=== PATIENT | male | born 1970 | race Caucasian/White ===

== ENCOUNTER 2024-01-28 16:00 | Emergency (ER) | payer BC ==
--- OUTSIDE RECORDS SUMMARY | 2024-01-28 16:04 | XMS REPORT | Continuity of Care Document ---
Author Name Unknown Address [address] [facility] [address] [place] [address] [facility] Address [address] [facility] [address] [place] [address] Care Team Providers Care Blanker Press Operator Name Role Phone Nelsy Self Primary Care Physician [phone] Javier Mansfield Attending Clinician Unavailable Physician, No Primary or Family Admitting Clinic elizabeth Unavailable Payers Payer Name Policy Type Policy Number Effective Date Expirati on Date Source Allergies, Adverse Reactions, Alerts Allergy Name Allergy Type Status Severity Reaction(s) Onset Date Inactive Date Treating Clinician Comments Source [place] - Intraven ous [facility] to adverse reaction to drug Active 05-06 00:00: 00 Medications Ordered Medication Name Filled Medication Name Start Date Stop Date Current Medication? Ordering Clinician Indication Dosage Frequency Signature (SIG) Comments Components Source Dose Unknown 05-06 00:00: 00 No Dose Unknown 05-06 00:00: 00 No metformin 850 mg tablet 05-06 00:00: 00 No 1mg lovastatin 10 mg tablet - 00:00: 00 No 1mg Dose Unknown - 00:00: 00 No Dose Unknown - 00:00: 00 No metformin 850 mg tablet 05-06 00:00: 00 No 1mg lovastatin 10 mg tablet - 00:00: 00 No 1mg glipizide 10 mg tablet 3-09 00:00: 00 No 1mg lisinopril 2.5 mg tablet 3 00:00: 00 No 1mg metformin 850 mg tablet 01-07 00:00: 00 No 1mg lovastatin 10 mg tablet 01-07 00:00: 00 No 1mg glipizide 10 mg tablet 3 00:00: 00 No 1mg lisinopril 2.5 mg tablet 01-07 00:00: 00 No 1mg metformin 850 mg tablet 01-07 00:00: 00 No 1mg lovastatin 10 mg tablet 01-07 00:00: 00 No 1mg Dose Unknown 2020-11 00:00: 00 No Dose Unknown 2020-11 00:00: 00 No metformin 850 mg tablet 2020-11 00:00: 00 No 1mg lovastatin 10 mg tablet 2020-11 00:00: 00 No 1mg Dose Unknown 2020-11 00:00: 00 No Dose Unknown 2020-11 00:00: 00 No metformin 850 mg tablet 2020-11 00:00: 00 No 1mg lovastatin 10 mg tablet 2020-11 00:00: 00 No 1mg Dose Unknown 07-08 00:00: 00 No lisinopril 2.5 mg tablet 07-08 00:00: 00 No 1mg metformin 850 mg tablet 07-08 00:00: 00 No 1mg lovastatin 10 mg tablet 07-08 00:00: 00 No 1mg Dose Unknown 07-08 00:00: 00 No lisinopril 2.5 mg tablet 07-08 00:00: 00 No 1mg metformin 850 mg tablet 07-08 00:00: 00 No 1mg lovastatin 10 mg tablet 07-08 00:00: 00 No 1mg glipizide 10 mg tablet 07-05 00:00: 00 No 1mg lisinopril 2.5 mg tablet 07-05 00:00: 00 No 1mg metformin 850 mg tablet 00:00: 00 No 1mg lovastatin 10 mg tablet 0 - 00:00: 00 No 1mg glipizide 10 mg tablet 0 - 00:00: 00 No 1mg lisinopril 2.5 mg tablet 0 07-05 00:00: 00 No 1mg metformin 850 mg tablet 0 07-05 00:00: 00 No 1mg lovastatin 10 mg tablet 0 07-05 00:00: 00 No 1mg Dose Unknown 0 03-17 00:00: 00 No Dose Unknown 0 03-17 00:00: 00 No Dose Unknown 0 03-17 00:00: 00 No Dose Unknown 0 03-17 00:00: 00 No Dose Unknown 0 03-17 00:00: 00 No Dose Unknown 0 03-17 00:00: 00 No Dose Unknown 0 03-17 00:00: 00 No Dose Unknown 0 03-17 00:00: 00 No lisinopril 2.5 mg tablet 0 01-20 00:00: 00 No 1mg Dose Unknown 0 01-20 00:00: 00 No metformin 850 mg tablet 0 01-20 00:00: 00 No 1mg lovastatin 10 mg tablet 0 01-20 00:00: 00 No 1mg lisinopril 2.5 mg tablet 0 3- 00:00: 00 No 1mg Dose Unknown 0 01-20 00:00: 00 No metformin 850 mg tablet 0 - 00:00: 00 No 1mg lovastatin 10 mg tablet 0 01-20 00:00: 00 No 1mg lisinopril 2.5 mg tablet 0 3-19 00:00: 00 No 1mg glipizide 5 mg tablet 0 3-19 00:00: 00 No 1mg metformin 850 mg tablet 0 3-19 00:00: 00 No 1mg lovastatin 10 mg tablet 0 3-19 00:00: 00 No 1mg lisinopril 2.5 mg tablet 0 3-19 00:00: 00 No 1mg glipizide 5 mg tablet 01-17 00:00: 00 No 1mg metformin 850 mg tablet 01-17 00:00: 00 No 1mg lovastatin 10 mg tablet 01-17 00:00: 00 No 1mg lisinopril 2.5 mg tablet 11-21 00:00: 00 No 1mg glipizide 5 mg tablet 11-21 00:00: 00 No 1mg metformin 850 mg tablet 11-21 00:00: 00 No 1mg lovastatin 10 mg tablet 11-21 00:00: 00 No 1mg lisinopril 2.5 mg tablet 11-21 00:00: 00 No 1mg glipizide 5 mg tablet 11-21 00:00: 00 No 1mg metformin 850 mg tablet 11-21 00:00: 00 No 1mg lovastatin 10 mg tablet 11-21 00:00: 00 No 1mg glipizide 5 mg tablet 2019-11 00:00: 00 No 1mg lisinopril 2.5 mg tablet 2019-11 00:00: 00 No 1mg metformin 850 mg tablet 2019-11 0 00:00: 00 No 1mg lovastatin 10 mg tablet 2019-11 00:00: 00 No 1mg glipizide 5 mg tablet 2019-11 0 00:00: 00 No 1mg lisinopril 2.5 mg tablet 2019-11 0 00:00: 00 No 1mg metformin 850 mg tablet 2019-11 00:00: 00 No 1mg lovastatin 10 mg tablet 2019-11 00:00: 00 No 1mg glipizide 5 mg tablet 05-06 00:00: 00 No 1mg lisinopril 2.5 mg tablet 05-06 00:00: 00 No 1mg metformin 850 mg tablet 05-06 00:00: 00 No 1mg lovastatin 10 mg tablet 05-06 00:00: 00 No 1mg glipizide 5 mg tablet 05-06 00:00: 00 No 1mg lisinopril 2.5 mg tablet 05-06 00:00: 00 No 1mg metformin 850 mg tablet 05-06 00:00: 00 No 1mg lovastatin 10 mg tablet 05-06 00:00: 00 No 1mg prednisone 20 mg tablet 01-21 00:00: 00 No mg Flonase Allergy Relief 50 mcg/actuati on nasal spray,suspe nsion 01-21 00:00: 00 No 1mcg/ac tuation prednisone 20 mg tablet 01-21 00:00: 00 No mg Flonase Allergy Relief 50 mcg/actuati on nasal spray,suspe nsion 01-21 00:00: 00 No 1mcg/ac tuation lisinopril 2.5 mg tablet 12-27 00:00: 00 No 1mg glipizide 5 mg tablet 12-27 00:00: 00 No 1mg metformin 850 mg tablet 2 00:00: 00 No 1mg lisinopril 2.5 mg tablet 12-27 00:00: 00 No 1mg glipizide 5 mg tablet 12-27 00:00: 00 No 1mg metformin 850 mg tablet 12-27 00:00: 00 No 1mg lovastatin 10 mg tablet 12-27 00:00: 00 No 1mg lovastatin 10 mg tablet 12-27 00:00: 00 No 1mg lisinopril 2.5 mg tablet 06-23 00:00: 00 No 1mg glipizide 5 mg tablet 06-23 00:00: 00 No 1mg metformin 850 mg tablet 06-23 00:00: 00 No 1mg lovastatin 10 mg tablet 06-23 00:00: 00 No 1mg lisinopril 2.5 mg tablet 06-23 00:00: 00 No 1mg glipizide 5 mg tablet 06-23 00:00: 00 No 1mg metformin 850 mg tablet 06-23 00:00: 00 No 1mg lovastatin 10 mg tablet 06-23 00:00: 00 No 1mg glipizide 5 mg tablet 12-09 00:00: 00 No 1mg lisinopril 2.5 mg tablet 12-09 00:00: 00 No 1mg metformin 850 mg tablet 12-09 00:00: 00 No 1mg lovastatin 10 mg tablet 12-09 00:00: 00 No 1mg glipizide 5 mg tablet 12-09 00:00: 00 No 1mg lisinopril 2.5 mg tablet 12-09 00:00: 00 No 1mg metformin 850 mg tablet 12-09 00:00: 00 No 1mg lovastatin 10 mg tablet 12-09 00:00: 00 No 1mg glipizide 5 mg tablet 12-08 00:00: 00 No 1mg metformin 1,000 mg tablet 12-08 00:00: 00 No 1mg lovastatin 10 mg tablet 12-08 00:00: 00 No 1mg Viagra 50 mg tablet 12-08 00:00: 00 No 1mg lisinopril 2.5 mg tablet 12-08 00:00: 00 No 1mg glipizide 5 mg tablet 12-08 00:00: 00 No 1mg metformin 1,000 mg tablet 12-08 00:00: 00 No 1mg lovastatin 10 mg tablet 12-08 00:00: 00 No 1mg Viagra 50 mg tablet 12-08 00:00: 00 No 1mg lisinopril 2.5 mg tablet 12-08 00:00: 00 No 1mg glipizide 5 mg tablet 2016-11 00:00: 00 No 1mg lisinopril 2.5 mg tablet 2016-11 00:00: 00 No 1mg metformin 1,000 mg tablet 2016-11 00:00: 00 No 1mg lovastatin 10 mg tablet 2016-11 00:00: 00 No 1mg glipizide 5 mg tablet 2016-11 00:00: 00 No 1mg lisinopril 2.5 mg tablet 2016-11 00:00: 00 No 1mg metformin 1,000 mg tablet 2016-11 00:00: 00 No 1mg lovastatin 10 mg tablet 2016-11 00:00: 00 No 1mg metformin 500 mg tablet 2016-11 00:00: 00 No 1mg metformin 500 mg tablet 2016-11 00:00: 00 No 1mg Vital Signs Vital Name Observation Time Observation Value Comments S ource BP Systolic 2022-01-07 09:31:00 135 mm[Hg] BP Diastolic 2022-01-07 09:31:00 89 mm[Hg] Weight Measured 2022-01-07 09:31:00 220.80 pounds Height Measured 2022-01-07 09:31:00 65.00 inches Body Temperature 2022-01-07 09:31:00 98.30 degrees Heart Rate 2022-01-07 09:31:00 94.00 /min Respiratory Rate 2022-01-07 09:31:00 16.00 /min BP Systolic 2021-09-15 11:24:00 125 mm[Hg] BP Diastolic 2021-09-15 11:24:00 85 mm[Hg] Weight Measured 2021-09-15 11:24:00 229.00 pounds Height Measured 2021-09-15 11:24:00 65.00 inches Body Temperature 2021-09-15 11:24:00 98.40 degrees Heart Rate 2021-09-15 11:24:00 98.00 /min Respiratory Rate 2021-09-15 11:24:00 16.00 /min BP Systolic 2021-07-05 11:23:00 119 mm[Hg] BP Diastolic 2021-07-05 11:23:00 77 mm[Hg] Weight Measured 2021-07-05 11:23:00 222.40 pounds Height Measured 2021-07-05 11:23:00 65.00 inches Body Temperature 2021-07-05 11:23:00 98.70 degrees Heart Rate 2021-07-05 11:23:00 85.00 /min Respiratory Rate 2021-07-05 11:23:00 BP Systolic 2021-01-20 17:46:00 138 mm[Hg] BP Diastolic 2021-01-20 17:46:00 88 mm[Hg] Weight Measured 2021-01-20 17:46:00 225.40 pounds Height Measured 2021-01-20 17:46:00 65.00 inches Body Temperature 2021-01-20 17:46:00 98.30 degrees Heart Rate 2021-01-20 17:46:00 96.00 /min Respiratory Rate 2021-01-20 17:46:00 16.00 /min BP Systolic 2020-10-01 08:10:00 129 mm[Hg] BP Diastolic 2020-10-01 08:10:00 90 mm[Hg] Weight Measured 2020-10-01 08:10:00 223.20 pounds Height Measured 2020-10-01 08:10:00 65.00 inches Body Temperature 2020-10-01 08:10:00 98.30 degrees Heart Rate 2020-10-01 08:10:00 80.00 /min Respiratory Rate 2020-10-01 08:10:00 16.00 /min BP Systolic 2020-08-23 11:35:00 130 mm[Hg] BP Diastolic 2020-08-23 11:35:00 85 mm[Hg] Weight Measured 2020-08-23 11:35:00 220.80 pounds Height Measured 2020-08-23 11:35:00 65.00 inches Body Temperature 2020-08-23 11:35:00 97.20 degrees Heart Rate 2020-08-23 11:35:00 84.00 /min Respiratory Rate 2020-08-23 11:35:00 18.00 /min BP Systolic 2019-12-27 17:08:00 142 mm[Hg] BP Diastolic 2019-12-27 17:08:00 87 mm[Hg] Weight Measured 2019-12-27 17:08:00 220.20 pounds Height Measured 2019-12-27 17:08:00 65.00 inches Body Temperature 2019-12-27 17:08:00 98.40 degrees Heart Rate 2019-12-27 17:08:00 79.00 /min Respiratory Rate 2019-12-27 17:08:00 16.00 /min BP Systolic 2019-06-23 13:39:00 141 mm[Hg] BP Diastolic 2019-06-23 13:39:00 93 mm[Hg] Weight Measured 2019-06-23 13:39:00 216.20 pounds Height Measured 2019-06-23 13:39:00 65.00 inches Body Temperature 2019-06-23 13:39:00 97.30 degrees Heart Rate 2019-06-23 13:39:00 96.00 /min Respiratory Rate 2019-06-23 13:39:00 BP Systolic 2017-12-08 13:25:00 142 mm[Hg] BP Diastolic 2017-12-08 13:25:00 93 mm[Hg] Weight Measured 2017-12-08 13:25:00 200.60 pounds Height Measured 2017-12-08 13:25:00 65.00 inches Body Temperature 2017-12-08 13:25:00 98.00 degrees Heart Rate 2017-12-08 13:25:00 66.00 /min Respiratory Rate 2017-12-08 13:25:00 12.00 /min BP Systolic 2017-09-29 14:27:00 129 mm[Hg] BP Diastolic 2017-09-29 14:27:00 89 mm[Hg] Weight Measured 2017-09-29 14:27:00 206.00 pounds Height Measured 2017-09-29 14:27:00 65.00 inches Body Temperature 2017-09-29 14:27:00 Heart Rate 2017-09-29 14:27:00 60.00 /min Respiratory Rate 2017-09-29 14:27:00 Plan of Care Planned Activity Planned Date Details Comments Source Goal Plan of Care Note [code = 77296-8] Goal Plan of Care Note [code = 19869-0] Goal Plan of Care Note [code = 08620-7] Goal Plan of Care Note [code = 07609-7] Goal Plan of Care Note [code = 04660-6] Goal Plan of Care Note [code = 90892-8] Goal Plan of Care Note [code = 50348-5] Goal Plan of Care Note [code = 60108-6] Goal Plan of Care Note [code = 70633-6] Goal Plan of Care Note [code = 05028-0] Goal Plan of Care Note [code = 54388-3] Goal Plan of Care Note [code = 80129-8] Goal Plan of Care Note [code = 89734-5] Goal Plan of Care Note [code = 68222-5] Goal Plan of Care Note [code = 18929-1] Goal Plan of Care Note [code = 31951-5] Goal Plan of Care Note [code = 45804-9] Goal Plan of Care Note [code = 31678-4] Goal Plan of Care Note [code = 45914-1] Goal Plan of Care Note [code = 43747-7] Goal Plan of Care Note [code = 59618-4] Goal Plan of Care Note [code = 16680-2] Goal Plan of Care Note [code = 67759-7] Goal Plan of Care Note [code = 84097-2] Goal Plan of Care Note [code = 88022-3] Goal Plan of Care Note [code = 02897-6] Encounters Start Date/Time End Date/Time Encounter Type Admission Type Attending [facility] Facility Care Department Encounter ID Source 2022-08-01 13:09:00 Inpatient Javier Rollins [facility] DIAB [id number] [facility] 2023-06-21 14:34:25 2023-06-21 14:34:25 Outpatient SFA SFA 0821 Gonzalo Wells 2022-10-15 08:03:02 2022-10-15 08:03:02 Outpatient SFA SFA 1215 Gonzalo Guerrero Russell 2022-07-10 08:00:00 2022-07-31 00:00:00 Outpatient Javier Rollins [facility] DIAB [id number] [facility] 2022-07-21 00:00:00 2022-07-21 00:00:00 Outpatient Visit [id number] 2022-06-26 08:30:00 2022-07-01 00:00:00 Outpatient Javier Rollins [facility] DIAB [id number] [facility] 2022-05-06 00:00:00 2022-05-06 00:00:00 Outpatient Visit [id number] Results Test Description Test Time Test Comments Results Result Co mments Source LIPID [id number] 04:27:04* Test Item Value Reference Range Interpretation Comme nts CHOLESTEROL (test code = 2210) 180 MG/DL <200 TRIGLYCERIDES (test code = 2232) 294 MG/DL <150 H HDL CHOLESTEROL (test code = 2220) 29 MG/DL >39 L CALC LDL CHOL (test code = 2237) 112 MG/DL <100 H NOTE: CALCULATED LDL IS BASED ON CONSTANTINE-BEAR METHOD WHICHINCLUDES ADJUSTABLE TRIGLYCERIDE:VLDL CHOLESTEROL RATIO.THIS FACTOR VARIES BY MEASURED TRIGLYCERIDE AND NON-HDLCHOLESTEROL CONCENTRATIONS WITH INCREASED CALCULATED LDL SEENIN HIGHER TRIGLYCERIDE OR LOWER NON-HDL SPECIMENS. FOR MOREINFORMATION, SEE CLIENT ANNOUNCEMENT AT [email or web address] [email or web address] RATIO LDL/HDL (test code = 2238) 3.86 RATIO <3.55 H HEMOGLOBIN [id number] 03:07:46* Test Item Value Reference Range Interpretation Comme nts HEMOGLOBIN A1c (test code = 85140) 10.0 % 4.2-5.6 H [employer] GUIDELINES FOR HGB A1C: PREDIABETES/INCREASED RISK . . . . . . . 5.7-6.4% DIAGNOSIS OF DIABETES . . . . . . . . . >=6.5% WITH CONFIRMATION OR APPROPRIATE SYMPTOMS NOTE: ASSAY MAY BE AFFECTED BY HEMOGLOBINOPATHIES (SICKLE CELL ANEMIA, S-C DISEASE, OTHERS) OR ARTIFICIALLY LOWERED BY DECREASED RED CELL SURVIVAL (HEMOLYTIC ANEMIAS, BLOOD LOSS, ETC.). CONSIDER ALTERNATE TESTING OR LABORATORY CONSULTATION. UNLESS OTHERWISE INDICATED, ALL TESTING PERFORMED [facility] [address] [place] [address] POLICYHOLDER INFORMATION CLERK: CHANDLER MOLINA M.D. CLIA NUMBER [id number] [facility] [place] [place]. [id number] COMPREHENSIVE METABOLIC [id number] 00:00:00* Test Item Value Reference Range Interpretation Comme nts GLUCOSE (test code = 2217) 201 MG/DL BUN (test code = 2208) 16 MG/DL CREATININE (test code = 2214) 0.95 MG/DL eGFR AMER. (test cod e = 20061) 108 ML/MIN/1.73 eGFR NON- AMER. (test code = 93144) 93 ML/MIN/1.73 CALC BUN/CREAT (test code = 2235) 17 RATIO SODIUM (test code = 2231) 138 MEQ/L POTASSIUM (test code = 2228) 4.6 MEQ/L CHLORIDE (test code = 2215) 103 MEQ/L CARBON DIOXIDE (test code = 2206) 25 MEQ/L CALCIUM (test code = 2209) 9.2 MG/DL PROTEIN, TOTAL (test code = 2229) 7.0 G/DL ALBUMIN (test code = 2201) 4.2 G/DL CALC GLOBULIN (test code = 2240) 2.8 G/DL CALC A/G RATIO (test code = 2234) 1.5 RATIO BILIRUBIN, TOTAL (test code = 2207) 0.3 MG/DL ALKALINE PHOSPHATASE (test code = 2204) 79 U/L AST (test code = 2218) 22 U/L ALT (test code = 2219) 40 U/L COMPREHENSIVE METABOLIC [id number] 00:00:00* Test Item Value Reference Range Interpretation Comme nts GLUCOSE (test code = 2217) 201 MG/DL BUN (test code = 2208) 16 MG/DL CREATININE (test code = 2214) 0.95 MG/DL eGFR AMER. (test cod e = 53699) 108 ML/MIN/1.73 eGFR NON- AMER. (test code = 80032) 93 ML/MIN/1.73 CALC BUN/CREAT (test code = 2235) 17 RATIO SODIUM (test code = 2231) 138 MEQ/L POTASSIUM (test code = 2228) 4.6 MEQ/L CHLORIDE (test code = 2215) 103 MEQ/L CARBON DIOXIDE (test code = 2206) 25 MEQ/L CALCIUM (test code = 2209) 9.2 MG/DL PROTEIN, TOTAL (test code = 2229) 7.0 G/DL ALBUMIN (test code = 2201) 4.2 G/DL CALC GLOBULIN (test code = 2240) 2.8 G/DL CALC A/G RATIO (test code = 2234) 1.5 RATIO BILIRUBIN, TOTAL (test code = 2207) 0.3 MG/DL ALKALINE PHOSPHATASE (test code = 2204) 79 U/L AST (test code = 2218) 22 U/L ALT (test code = 2219) 40 U/L HEMOGLOBIN [id number] 00:00:00* Test Item Value Reference Range Interpretation Comme nts HEMOGLOBIN A1c (test code = 05789) 7.4 % HEMOGLOBIN [id number] 00:00:00* Test Item Value Reference Range Interpretation Comme nts HEMOGLOBIN A1c (test code = 27264) 7.4 % HEMOGLOBIN [id number] 00:00:00* Test Item Value Reference Range Interpretation Comme nts HEMOGLOBIN A1c (test code = 09613) 7.4 % COMPREHENSIVE METABOLIC [id number] 00:00:00* Test Item Value Reference Range Interpretation Comme nts GLUCOSE (test code = 2217) 201 MG/DL BUN (test code = 2208) 16 MG/DL CREATININE (test code = 2214) 0.95 MG/DL eGFR AMER. (test cod e = 58767) 108 ML/MIN/1.73 eGFR NON- AMER. (test code = 99795) 93 ML/MIN/1.73 CALC BUN/CREAT (test code = 2235) 17 RATIO SODIUM (test code = 2231) 138 MEQ/L POTASSIUM (test code = 2228) 4.6 MEQ/L CHLORIDE (test code = 2215) 103 MEQ/L CARBON DIOXIDE (test code = 2206) 25 MEQ/L CALCIUM (test code = 2209) 9.2 MG/DL PROTEIN, TOTAL (test code = 2229) 7.0 G/DL ALBUMIN (test code = 2201) 4.2 G/DL CALC GLOBULIN (test code = 2240) 2.8 G/DL CALC A/G RATIO (test code = 2234) 1.5 RATIO BILIRUBIN, TOTAL (test code = 2207) 0.3 MG/DL ALKALINE PHOSPHATASE (test code = 2204) 79 U/L AST (test code = 2218) 22 U/L ALT (test code = 2219) 40 U/L COMPREHENSIVE METABOLIC [id number] 00:00:00* Test Item Value Reference Range Interpretation Comme nts GLUCOSE (test code = 2217) 201 MG/DL BUN (test code = 2208) 16 MG/DL CREATININE (test code = 2214) 0.95 MG/DL eGFR AMER. (test cod e = 68640) 108 ML/MIN/1.73 eGFR NON- AMER. (test code = 43948) 93 ML/MIN/1.73 CALC BUN/CREAT (test code = 2235) 17 RATIO SODIUM (test code = 2231) 138 MEQ/L POTASSIUM (test code = 2228) 4.6 MEQ/L CHLORIDE (test code = 2215) 103 MEQ/L CARBON DIOXIDE (test code = 2206) 25 MEQ/L CALCIUM (test code = 2209) 9.2 MG/DL PROTEIN, TOTAL (test code = 2229) 7.0 G/DL ALBUMIN (test code = 2201) 4.2 G/DL CALC GLOBULIN (test code = 2240) 2.8 G/DL CALC A/G RATIO (test code = 2234) 1.5 RATIO BILIRUBIN, TOTAL (test code = 7) 0.3 MG/DL ALKALINE PHOSPHATASE (test code = 2203) 79 U/L AST (test code = 2217) 22 U/L ALT (test code = 2218) 40 U/L HEMOGLOBIN [id number] 00:00:00* Test Item Value Reference Range Interpretation Comme nts HEMOGLOBIN A1c (test code = 55377) 7.4 % HEMOGLOBIN [id number] 00:00:00* Test Item Value Reference Range Interpretation Comme nts HEMOGLOBIN A1c (test code = 12925) 7.4 % HEMOGLOBIN [id number] 00:00:00* Test Item Value Reference Range Interpretation Comme nts HEMOGLOBIN A1c (test code = 91557) 7.4 % CBC W/AUTO [id number] 00:00:00* Test Item Value Reference Range Interpretation Comme nts WBC (test code = 1001) 6.4 K/UL RBC (test code = 1002) 4.75 M/UL HEMOGLOBIN (test code = 1003) 14.8 G/DL HEMATOCRIT (test code = 1004) 42.3 % MCV (test code = 1005) 89.1 fL MCH (test code = 1006) 31.2 PG MCHC (test code = 1007) 35.0 G/DL RDW (test code = 1038) 12.7 % NEUTROPHILS (test code = 1008) 44.4 % LYMPHOCYTES (test code = 1010) 43.0 % MONOCYTES (test code = 1011) 10.0 % EOSINOPHILS (test code = 1012) 1.4 % BASOPHILS (test code = 1013) 0.6 % IMMATURE GRANULOCYTES (test code = 1036) 0.6 % NUCLEATED RBCS (test code = 1065) 0.0 /100WBC'S PLATELET COUNT (test code = 1015) 221 K/UL ABSOLUTE NEUTROPHILS (test c ode = 1066) 2.82 K/UL ABSOLUTE LYMPHOCYTES (test c ode = 1067) 2.74 K/UL ABSOLUTE MONOCYTES (test cod e = 1068) 0.64 K/UL ABSOLUTE EOSINOPHILS (test c ode = 1040) 0.09 K/UL ABSOLUTE BASOPHILS (test cod e = 1069) 0.04 K/UL ABS IMMATURE GRANULOCYTES (t est code = 1020) 0.04 K/UL ABS NUCLEATED RBCS (test cod e = 78920) 0.00 K/UL CBC W/AUTO [id number] 00:00:00* Test Item Value Reference Range Interpretation Comme nts WBC (test code = 1001) 6.4 K/UL RBC (test code = 1002) 4.75 M/UL HEMOGLOBIN (test code = 1003) 14.8 G/DL HEMATOCRIT (test code = 1004) 42.3 % MCV (test code = 1005) 89.1 fL MCH (test code = 1006) 31.2 PG MCHC (test code = 1007) 35.0 G/DL RDW (test code = 1038) 12.7 % NEUTROPHILS (test code = 1008) 44.4 % LYMPHOCYTES (test code = 1010) 43.0 % MONOCYTES (test code = 1011) 10.0 % EOSINOPHILS (test code = 1012) 1.4 % BASOPHILS (test code = 1013) 0.6 % IMMATURE GRANULOCYTES (test code = 1036) 0.6 % NUCLEATED RBCS (test code = 1065) 0.0 /100WBC'S PLATELET COUNT (test code = 1015) 221 K/UL ABSOLUTE NEUTROPHILS (test c ode = 1066) 2.82 K/UL ABSOLUTE LYMPHOCYTES (test c ode = 1067) 2.74 K/UL ABSOLUTE MONOCYTES (test cod e = 1068) 0.64 K/UL ABSOLUTE EOSINOPHILS (test c ode = 1040) 0.09 K/UL ABSOLUTE BASOPHILS (test cod e = 1069) 0.04 K/UL ABS IMMATURE GRANULOCYTES (t est code = 1020) 0.04 K/UL ABS NUCLEATED RBCS (test cod e = 12051) 0.00 K/UL CBC W/AUTO [id number] 00:00:00* Test Item Value Reference Range Interpretation Comme nts WBC (test code = 1001) 6.4 K/UL RBC (test code = 1002) 4.75 M/UL HEMOGLOBIN (test code = 1003) 14.8 G/DL HEMATOCRIT (test code = 1004) 42.3 % MCV (test code = 1005) 89.1 fL MCH (test code = 1006) 31.2 PG MCHC (test code = 1007) 35.0 G/DL RDW (test code = 1038) 12.7 % NEUTROPHILS (test code = 1008) 44.4 % LYMPHOCYTES (test code = 1010) 43.0 % MONOCYTES (test code = 1011) 10.0 % EOSINOPHILS (test code = 1012) 1.4 % BASOPHILS (test code = 1013) 0.6 % IMMATURE GRANULOCYTES (test code = 1036) 0.6 % NUCLEATED RBCS (test code = 1065) 0.0 /100WBC'S PLATELET COUNT (test code = 1015) 221 K/UL ABSOLUTE NEUTROPHILS (test c ode = 1066) 2.82 K/UL ABSOLUTE LYMPHOCYTES (test c ode = 1067) 2.74 K/UL ABSOLUTE MONOCYTES (test cod e = 1068) 0.64 K/UL ABSOLUTE EOSINOPHILS (test c ode = 1040) 0.09 K/UL ABSOLUTE BASOPHILS (test cod e = 1069) 0.04 K/UL ABS IMMATURE GRANULOCYTES (t est code = 1020) 0.04 K/UL ABS NUCLEATED RBCS (test cod e = 39343) 0.00 K/UL COMPREHENSIVE METABOLIC [id number] 00:00:00* Test Item Value Reference Range Interpretation Comme nts GLUCOSE (test code = 2217) 191 MG/DL BUN (test code = 2208) 19 MG/DL CREATININE (test code = 2214) 0.81 MG/DL eGFR AMER. (test cod e = 19258) 121 ML/MIN/1.73 eGFR NON- AMER. (test code = 20831) 104 ML/MIN/1.73 CALC BUN/CREAT (test code = 2235) 23 RATIO SODIUM (test code = 2231) 140 MEQ/L POTASSIUM (test code = 2228) 4.4 MEQ/L CHLORIDE (test code = 2215) 105 MEQ/L CARBON DIOXIDE (test code = 2206) 24 MEQ/L CALCIUM (test code = 2209) 9.2 MG/DL PROTEIN, TOTAL (test code = 2229) 7.0 G/DL ALBUMIN (test code = 2201) 4.3 G/DL CALC GLOBULIN (test code = 2240) 2.7 G/DL CALC A/G RATIO (test code = 2234) 1.6 RATIO BILIRUBIN, TOTAL (test code = 2207) 0.4 MG/DL ALKALINE PHOSPHATASE (test code = 2204) 70 U/L AST (test code = 2218) 27 U/L ALT (test code = 2219) 45 U/L COMPREHENSIVE METABOLIC [id number] 00:00:00* Test Item Value Reference Range Interpretation Comme nts GLUCOSE (test code = 2217) 191 MG/DL BUN (test code = 2208) 19 MG/DL CREATININE (test code = 2214) 0.81 MG/DL eGFR AMER. (test cod e = 74601) 121 ML/MIN/1.73 eGFR NON- AMER. (test code = 40519) 104 ML/MIN/1.73 CALC BUN/CREAT (test code = 2235) 23 RATIO SODIUM (test code = 2231) 140 MEQ/L POTASSIUM (test code = 2228) 4.4 MEQ/L CHLORIDE (test code = 2215) 105 MEQ/L CARBON DIOXIDE (test code = 2206) 24 MEQ/L CALCIUM (test code = 2209) 9.2 MG/DL PROTEIN, TOTAL (test code = 2229) 7.0 G/DL ALBUMIN (test code = 2201) 4.3 G/DL CALC GLOBULIN (test code = 2240) 2.7 G/DL CALC A/G RATIO (test code = 2234) 1.6 RATIO BILIRUBIN, TOTAL (test code = 2207) 0.4 MG/DL ALKALINE PHOSPHATASE (test code = 2204) 70 U/L AST (test code = 2218) 27 U/L ALT (test code = 2219) 45 U/L LIPID [id number] 00:00:00* Test Item Value Reference Range Interpretation Comme nts CHOLESTEROL (test code = 2210) 138 MG/DL TRIGLYCERIDES (test code = 2232) 143 MG/DL HDL CHOLESTEROL (test code = 2220) 33 MG/DL CALC LDL CHOL (test code = 2237) 81 MG/DL RISK RATIO LDL/HDL (test cod e = 2238) 2.45 RATIO LIPID [id number] 00:00:00* Test Item Value Reference Range Interpretation Comme nts CHOLESTEROL (test code = 2210) 138 MG/DL TRIGLYCERIDES (test code = 2232) 143 MG/DL HDL CHOLESTEROL (test code = 2220) 33 MG/DL CALC LDL CHOL (test code = 2237) 81 MG/DL RISK RATIO LDL/HDL (test cod e = 2238) 2.45 RATIO HEMOGLOBIN [id number] 00:00:00* Test Item Value Reference Range Interpretation Comme nts HEMOGLOBIN A1c (test code = 04560) 8.2 % HEMOGLOBIN [id number] 00:00:00* Test Item Value Reference Range Interpretation Comme nts HEMOGLOBIN A1c (test code = 94662) 8.2 % HEMOGLOBIN [id number] 00:00:00* Test Item Value Reference Range Interpretation Comme nts HEMOGLOBIN A1c (test code = 32784) 8.2 % [id number] 00:00:00* Test Item Value Reference Range Interpretation Comme nts TESTOSTERONE (test code = 2830) 307 NG/DL [id number] 00:00:00* Test Item Value Reference Range Interpretation Comme nts TESTOSTERONE (test code = 2830) 307 NG/DL CBC W/AUTO [id number] 00:00:00* Test Item Value Reference Range Interpretation Comme nts WBC (test code = 1001) 6.4 K/UL RBC (test code = 1002) 4.75 M/UL HEMOGLOBIN (test code = 1003) 14.8 G/DL HEMATOCRIT (test code = 1004) 42.3 % MCV (test code = 1005) 89.1 fL MCH (test code = 1006) 31.2 PG MCHC (test code = 1007) 35.0 G/DL RDW (test code = 1038) 12.7 % NEUTROPHILS (test code = 1008) 44.4 % LYMPHOCYTES (test code = 1010) 43.0 % MONOCYTES (test code = 1011) 10.0 % EOSINOPHILS (test code = 1012) 1.4 % BASOPHILS (test code = 1013) 0.6 % IMMATURE GRANULOCYTES (test code = 1036) 0.6 % NUCLEATED RBCS (test code = 1065) 0.0 /100WBC'S PLATELET COUNT (test code = 1015) 221 K/UL ABSOLUTE NEUTROPHILS (test c ode = 1066) 2.82 K/UL ABSOLUTE LYMPHOCYTES (test c ode = 1067) 2.74 K/UL ABSOLUTE MONOCYTES (test cod e = 1068) 0.64 K/UL ABSOLUTE EOSINOPHILS (test c ode = 1040) 0.09 K/UL ABSOLUTE BASOPHILS (test cod e = 1069) 0.04 K/UL ABS IMMATURE GRANULOCYTES (t est code = 1020) 0.04 K/UL ABS NUCLEATED RBCS (test cod e = 78362) 0.00 K/UL CBC W/AUTO [id number] 00:00:00* Test Item Value Reference Range Interpretation Comme nts WBC (test code = 1001) 6.4 K/UL RBC (test code = 1002) 4.75 M/UL HEMOGLOBIN (test code = 1003) 14.8 G/DL HEMATOCRIT (test code = 1004) 42.3 % MCV (test code = 1005) 89.1 fL MCH (test code = 1006) 31.2 PG MCHC (test code = 1007) 35.0 G/DL RDW (test code = 1038) 12.7 % NEUTROPHILS (test code = 1008) 44.4 % LYMPHOCYTES (test code = 1010) 43.0 % MONOCYTES (test code = 1011) 10.0 % EOSINOPHILS (test code = 1012) 1.4 % BASOPHILS (test code = 1013) 0.6 % IMMATURE GRANULOCYTES (test code = 1036) 0.6 % NUCLEATED RBCS (test code = 1065) 0.0 /100WBC'S PLATELET COUNT (test code = 1015) 221 K/UL ABSOLUTE NEUTROPHILS (test c ode = 1066) 2.82 K/UL ABSOLUTE LYMPHOCYTES (test c ode = 1067) 2.74 K/UL ABSOLUTE MONOCYTES (test cod e = 1068) 0.64 K/UL ABSOLUTE EOSINOPHILS (test c ode = 1040) 0.09 K/UL ABSOLUTE BASOPHILS (test cod e = 1069) 0.04 K/UL ABS IMMATURE GRANULOCYTES (t est code = 1020) 0.04 K/UL ABS NUCLEATED RBCS (test cod e = 13656) 0.00 K/UL CBC W/AUTO [id number] 00:00:00* Test Item Value Reference Range Interpretation Comme nts WBC (test code = 1001) 6.4 K/UL RBC (test code = 1002) 4.75 M/UL HEMOGLOBIN (test code = 1003) 14.8 G/DL HEMATOCRIT (test code = 1004) 42.3 % MCV (test code = 1005) 89.1 fL MCH (test code = 1006) 31.2 PG MCHC (test code = 1007) 35.0 G/DL RDW (test code = 1038) 12.7 % NEUTROPHILS (test code = 1008) 44.4 % LYMPHOCYTES (test code = 1010) 43.0 % MONOCYTES (test code = 1011) 10.0 % EOSINOPHILS (test code = 1012) 1.4 % BASOPHILS (test code = 1013) 0.6 % IMMATURE GRANULOCYTES (test code = 1036) 0.6 % NUCLEATED RBCS (test code = 1065) 0.0 /100WBC'S PLATELET COUNT (test code = 1015) 221 K/UL ABSOLUTE NEUTROPHILS (test c ode = 1066) 2.82 K/UL ABSOLUTE LYMPHOCYTES (test c ode = 1067) 2.74 K/UL ABSOLUTE MONOCYTES (test cod e = 1068) 0.64 K/UL ABSOLUTE EOSINOPHILS (test c ode = 1040) 0.09 K/UL ABSOLUTE BASOPHILS (test cod e = 1069) 0.04 K/UL ABS IMMATURE GRANULOCYTES (t est code = 1020) 0.04 K/UL ABS NUCLEATED RBCS (test cod e = 15145) 0.00 K/UL COMPREHENSIVE METABOLIC [id number] 00:00:00* Test Item Value Reference Range Interpretation Comme nts GLUCOSE (test code = 2217) 191 MG/DL BUN (test code = 2208) 19 MG/DL CREATININE (test code = 2214) 0.81 MG/DL eGFR AMER. (test cod e = 53496) 121 ML/MIN/1.73 eGFR NON- AMER. (test code = 54839) 104 ML/MIN/1.73 CALC BUN/CREAT (test code = 2235) 23 RATIO SODIUM (test code = 2231) 140 MEQ/L POTASSIUM (test code = 2228) 4.4 MEQ/L CHLORIDE (test code = 2215) 105 MEQ/L CARBON DIOXIDE (test code = 2206) 24 MEQ/L CALCIUM (test code = 2209) 9.2 MG/DL PROTEIN, TOTAL (test code = 2229) 7.0 G/DL ALBUMIN (test code = 2201) 4.3 G/DL CALC GLOBULIN (test code = 2240) 2.7 G/DL CALC A/G RATIO (test code = 2234) 1.6 RATIO BILIRUBIN, TOTAL (test code = 2207) 0.4 MG/DL ALKALINE PHOSPHATASE (test code = 2204) 70 U/L AST (test code = 2218) 27 U/L ALT (test code = 2219) 45 U/L COMPREHENSIVE METABOLIC [id number] 00:00:00* Test Item Value Reference Range Interpretation Comme nts GLUCOSE (test code = 2217) 191 MG/DL BUN (test code = 2208) 19 MG/DL CREATININE (test code = 2214) 0.81 MG/DL eGFR AMER. (test cod e = 97387) 121 ML/MIN/1.73 eGFR NON- AMER. (test code = 53289) 104 ML/MIN/1.73 CALC BUN/CREAT (test code = 2235) 23 RATIO SODIUM (test code = 2231) 140 MEQ/L POTASSIUM (test code = 2228) 4.4 MEQ/L CHLORIDE (test code = 2215) 105 MEQ/L CARBON DIOXIDE (test code = 2206) 24 MEQ/L CALCIUM (test code = 2209) 9.2 MG/DL PROTEIN, TOTAL (test code = 2229) 7.0 G/DL ALBUMIN (test code = 2201) 4.3 G/DL CALC GLOBULIN (test code = 2240) 2.7 G/DL CALC A/G RATIO (test code = 2234) 1.6 RATIO BILIRUBIN, TOTAL (test code = 2207) 0.4 MG/DL ALKALINE PHOSPHATASE (test code = 2204) 70 U/L AST (test code = 2218) 27 U/L ALT (test code = 2219) 45 U/L LIPID [id number] 00:00:00* Test Item Value Reference Range Interpretation Comme nts CHOLESTEROL (test code = 2210) 138 MG/DL TRIGLYCERIDES (test code = 2232) 143 MG/DL HDL CHOLESTEROL (test code = 2220) 33 MG/DL CALC LDL CHOL (test code = 2237) 81 MG/DL RISK RATIO LDL/HDL (test cod e = 2238) 2.45 RATIO LIPID [id number] 00:00:00* Test Item Value Reference Range Interpretation Comme nts CHOLESTEROL (test code = 2210) 138 MG/DL TRIGLYCERIDES (test code = 2232) 143 MG/DL HDL CHOLESTEROL (test code = 2220) 33 MG/DL CALC LDL CHOL (test code = 2237) 81 MG/DL RISK RATIO LDL/HDL (test cod e = 2238) 2.45 RATIO HEMOGLOBIN [id number] 00:00:00* Test Item Value Reference Range Interpretation Comme nts HEMOGLOBIN A1c (test code = 38881) 8.2 % HEMOGLOBIN [id number] 00:00:00* Test Item Value Reference Range Interpretation Comme nts HEMOGLOBIN A1c (test code = 03354) 8.2 % HEMOGLOBIN [id number] 00:00:00* Test Item Value Reference Range Interpretation Comme nts HEMOGLOBIN A1c (test code = 07075) 8.2 % [id number] 00:00:00* Test Item Value Reference Range Interpretation Comme nts TESTOSTERONE (test code = 2830) 307 NG/DL [id number] 00:00:00* Test Item Value Reference Range Interpretation Comme nts TESTOSTERONE (test code = 2830) 307 NG/DL SARS-CoV-2 (COVID-19) by RT-PCR (HIGH RISK)2020-10-04 00:00:00* Test Item Value Reference Range Interpretation Comme nts SARS-CoV-2 INTERPRETATION (t est code = 12324) NEGATIVE SOURCE (test code = 66658) NOT SPECIFIED SARS-CoV-2 (COVID-19) by RT-PCR (HIGH RISK)2020-10-04 00:00:00* Test Item Value Reference Range Interpretation Comme nts SARS-CoV-2 INTERPRETATION (t est code = 26671) NEGATIVE SOURCE (test code = 72408) NOT SPECIFIED SARS-CoV-2 (COVID-19) by RT-PCR (HIGH RISK)2020-10-04 00:00:00* Test Item Value Reference Range Interpretation Comme nts SARS-CoV-2 INTERPRETATION (t est code = 43900) NEGATIVE SOURCE (test code = 73814) NOT SPECIFIED SARS-CoV-2 (COVID-19) by RT-PCR (HIGH RISK)2020-10-04 00:00:00* Test Item Value Reference Range Interpretation Comme nts SARS-CoV-2 INTERPRETATION (t est code = 31737) NEGATIVE SOURCE (test code = 50010) NOT SPECIFIED CBC W/AUTO [id number] 00:00:00* Test Item Value Reference Range Interpretation Comme nts WBC (test code = 1001) 6.1 K/UL RBC (test code = 1002) 4.48 M/UL HEMOGLOBIN (test code = 1003) 13.9 G/DL HEMATOCRIT (test code = 1004) 40.2 % MCV (test code = 1005) 89.7 fL MCH (test code = 1006) 31.0 PG MCHC (test code = 1007) 34.6 G/DL RDW (test code = 1038) 12.8 % NEUTROPHILS (test code = 1008) 47.1 % LYMPHOCYTES (test code = 1010) 41.3 % MONOCYTES (test code = 1011) 9.3 % EOSINOPHILS (test code = 1012) 1.6 % BASOPHILS (test code = 1013) 0.7 % PLATELET COUNT (test code = 1015) 229 K/UL CBC W/AUTO [id number] 00:00:00* Test Item Value Reference Range Interpretation Comme nts WBC (test code = 1001) 6.1 K/UL RBC (test code = 1002) 4.48 M/UL HEMOGLOBIN (test code = 1003) 13.9 G/DL HEMATOCRIT (test code = 1004) 40.2 % MCV (test code = 1005) 89.7 fL MCH (test code = 1006) 31.0 PG MCHC (test code = 1007) 34.6 G/DL RDW (test code = 1038) 12.8 % NEUTROPHILS (test code = 1008) 47.1 % LYMPHOCYTES (test code = 1010) 41.3 % MONOCYTES (test code = 1011) 9.3 % EOSINOPHILS (test code = 1012) 1.6 % BASOPHILS (test code = 1013) 0.7 % PLATELET COUNT (test code = 1015) 229 K/UL PSA, [id number] 00:00:00* Test Item Value Reference Range Interpretation Comme nts PSA, TOTAL (test code = 2606) 0.75 NG/ML PSA, [id number] 00:00:00* Test Item Value Reference Range Interpretation Comme nts PSA, TOTAL (test code = 2606) 0.75 NG/ML PSA, [id number] 00:00:00* Test Item Value Reference Range Interpretation Comme nts PSA, TOTAL (test code = 2606) 0.75 NG/ML [id number] 00:00:00* Test Item Value Reference Range Interpretation Comme nts TESTOSTERONE (test code = 2830) 310 NG/DL [id number] 00:00:00* Test Item Value Reference Range Interpretation Comme nts TESTOSTERONE (test code = 2830) 310 NG/DL CBC W/AUTO [id number] 00:00:00* Test Item Value Reference Range Interpretation Comme nts WBC (test code = 1001) 6.1 K/UL RBC (test code = 1002) 4.48 M/UL HEMOGLOBIN (test code = 1003) 13.9 G/DL HEMATOCRIT (test code = 1004) 40.2 % MCV (test code = 1005) 89.7 fL MCH (test code = 1006) 31.0 PG MCHC (test code = 1007) 34.6 G/DL RDW (test code = 1038) 12.8 % NEUTROPHILS (test code = 1008) 47.1 % LYMPHOCYTES (test code = 1010) 41.3 % MONOCYTES (test code = 1011) 9.3 % EOSINOPHILS (test code = 1012) 1.6 % BASOPHILS (test code = 1013) 0.7 % PLATELET COUNT (test code = 1015) 229 K/UL CBC W/AUTO [id number] 00:00:00* Test Item Value Reference Range Interpretation Comme nts WBC (test code = 1001) 6.1 K/UL RBC (test code = 1002) 4.48 M/UL HEMOGLOBIN (test code = 1003) 13.9 G/DL HEMATOCRIT (test code = 1004) 40.2 % MCV (test code = 1005) 89.7 fL MCH (test code = 1006) 31.0 PG MCHC (test code = 1007) 34.6 G/DL RDW (test code = 1038) 12.8 % NEUTROPHILS (test code = 1008) 47.1 % LYMPHOCYTES (test code = 1010) 41.3 % MONOCYTES (test code = 1011) 9.3 % EOSINOPHILS (test code = 1012) 1.6 % BASOPHILS (test code = 1013) 0.7 % PLATELET COUNT (test code = 1015) 229 K/UL CBC W/AUTO [id number] 00:00:00* Test Item Value Reference Range Interpretation Comme nts WBC (test code = 1001) 6.1 K/UL RBC (test code = 1002) 4.48 M/UL HEMOGLOBIN (test code = 1003) 13.9 G/DL HEMATOCRIT (test code = 1004) 40.2 % MCV (test code = 1005) 89.7 fL MCH (test code = 1006) 31.0 PG MCHC (test code = 1007) 34.6 G/DL RDW (test code = 1038) 12.8 % NEUTROPHILS (test code = 1008) 47.1 % LYMPHOCYTES (test code = 1010) 41.3 % MONOCYTES (test code = 1011) 9.3 % EOSINOPHILS (test code = 1012) 1.6 % BASOPHILS (test code = 1013) 0.7 % PLATELET COUNT (test code = 1015) 229 K/UL PSA, [id number] 00:00:00* Test Item Value Reference Range Interpretation Comme nts PSA, TOTAL (test code = 2606) 0.75 NG/ML PSA, [id number] 00:00:00* Test Item Value Reference Range Interpretation Comme nts PSA, TOTAL (test code = 2606) 0.75 NG/ML PSA, [id number] 00:00:00* Test Item Value Reference Range Interpretation Comme nts PSA, TOTAL (test code = 2606) 0.75 NG/ML [id number] 00:00:00* Test Item Value Reference Range Interpretation Comme nts TESTOSTERONE (test code = 2830) 310 NG/DL [id number] 00:00:00* Test Item Value Reference Range Interpretation Comme nts TESTOSTERONE (test code = 2830) 310 NG/DL CBC W/AUTO [id number] 00:00:00* Test Item Value Reference Range Interpretation Comme nts WBC (test code = 1001) 6.1 K/UL RBC (test code = 1002) 4.48 M/UL HEMOGLOBIN (test code = 1003) 13.9 G/DL HEMATOCRIT (test code = 1004) 40.2 % MCV (test code = 1005) 89.7 fL MCH (test code = 1006) 31.0 PG MCHC (test code = 1007) 34.6 G/DL RDW (test code = 1038) 12.8 % NEUTROPHILS (test code = 1008) 47.1 % LYMPHOCYTES (test code = 1010) 41.3 % MONOCYTES (test code = 1011) 9.3 % EOSINOPHILS (test code = 1012) 1.6 % BASOPHILS (test code = 1013) 0.7 % PLATELET COUNT (test code = 1015) 229 K/UL COMPREHENSIVE METABOLIC [id number] 00:00:00* Test Item Value Reference Range Interpretation Comme nts GLUCOSE (test code = 2217) 143 MG/DL BUN (test code = 2208) 13 MG/DL CREATININE (test code = 2214) 0.90 MG/DL eGFR AMER. (test cod e = 20004) 117 ML/MIN/1.73 eGFR NON- AMER. (test code = 04575) 101 ML/MIN/1.73 CALC BUN/CREAT (test code = 2235) 14 RATIO SODIUM (test code = 2231) 141 MEQ/L POTASSIUM (test code = 2228) 4.6 MEQ/L CHLORIDE (test code = 2215) 103 MEQ/L CARBON DIOXIDE (test code = 2206) 27 MEQ/L CALCIUM (test code = 2209) 9.4 MG/DL PROTEIN, TOTAL (test code = 2229) 7.4 G/DL ALBUMIN (test code = 2201) 4.7 G/DL CALC GLOBULIN (test code = 2240) 2.7 G/DL CALC A/G RATIO (test code = 2234) 1.7 RATIO BILIRUBIN, TOTAL (test code = 2207) 0.5 MG/DL ALKALINE PHOSPHATASE (test code = 2204) 84 U/L AST (test code = 2218) 18 U/L ALT (test code = 2219) 27 U/L LIPID [id number] 00:00:00* Test Item Value Reference Range Interpretation Comme nts CHOLESTEROL (test code = 2210) 117 MG/DL TRIGLYCERIDES (test code = 2232) 114 MG/DL HDL CHOLESTEROL (test code = 2220) 30 MG/DL CALC LDL CHOL (test code = 2237) 64 MG/DL RISK RATIO LDL/HDL (test cod e = 2238) 2.14 RATIO LIPID [id number] 00:00:00* Test Item Value Reference Range Interpretation Comme nts CHOLESTEROL (test code = 2210) 117 MG/DL TRIGLYCERIDES (test code = 2232) 114 MG/DL HDL CHOLESTEROL (test code = 2220) 30 MG/DL CALC LDL CHOL (test code = 2237) 64 MG/DL RISK RATIO LDL/HDL (test cod e = 2238) 2.14 RATIO HEMOGLOBIN [id number] 00:00:00* Test Item Value Reference Range Interpretation Comme nts HEMOGLOBIN A1c (test code = 01318) 6.5 % HEMOGLOBIN [id number] 00:00:00* Test Item Value Reference Range Interpretation Comme nts HEMOGLOBIN A1c (test code = 62123) 6.5 % HEMOGLOBIN [id number] 00:00:00* Test Item Value Reference Range Interpretation Comme nts HEMOGLOBIN A1c (test code = 82117) 6.5 % MICROALBUMIN/CREATININE, RANDOM AND [id number] 00:00:00* Test Item Value Reference Range Interpretation Comme nts CREATININE, URINE, CONC. (te st code = 207) 113.3 MG/DL ALBUMIN, URINE, RANDOM (test code = 25167) 1.5 MG/DL CALC ALBUMIN/CREAT, RND (paula t code = 36714) 13 MG/G MICROALBUMIN/CREATININE, RANDOM AND [id number] 00:00:00* Test Item Value Reference Range Interpretation Comme nts CREATININE, URINE, CONC. (te st code = 207) 113.3 MG/DL ALBUMIN, URINE, RANDOM (test code = 68399) 1.5 MG/DL CALC ALBUMIN/CREAT, RND (paula t code = 13300) 13 MG/G TESTOSTERONE, FREE/TOTAL WITH [id number] 00:00:00* Test Item Value Reference Range Interpretation Comme nts TESTOSTERONE (test code = 2830) 256 NG/DL SEX HORM BIND GLOBULIN (test code = 4933) 24.6 NMOL/L CALC FREE TESTOSTERONE (test code = 00550) 58.3 PG/ML TESTOSTERONE, FREE/TOTAL WITH [id number] 00:00:00* Test Item Value Reference Range Interpretation Comme nts TESTOSTERONE (test code = 2830) 256 NG/DL SEX HORM BIND GLOBULIN (test code = 4933) 24.6 NMOL/L CALC FREE TESTOSTERONE (test code = 93446) 58.3 PG/ML COMPREHENSIVE METABOLIC [id number] 00:00:00* Test Item Value Reference Range Interpretation Comme nts GLUCOSE (test code = 2217) 143 MG/DL BUN (test code = 2208) 13 MG/DL CREATININE (test code = 2214) 0.90 MG/DL eGFR AMER. (test cod e = 27583) 117 ML/MIN/1.73 eGFR NON- AMER. (test code = 63031) 101 ML/MIN/1.73 CALC BUN/CREAT (test code = 2235) 14 RATIO SODIUM (test code = 2231) 141 MEQ/L POTASSIUM (test code = 2228) 4.6 MEQ/L CHLORIDE (test code = 2215) 103 MEQ/L CARBON DIOXIDE (test code = 2206) 27 MEQ/L CALCIUM (test code = 2209) 9.4 MG/DL PROTEIN, TOTAL (test code = 2229) 7.4 G/DL ALBUMIN (test code = 2201) 4.7 G/DL CALC GLOBULIN (test code = 2240) 2.7 G/DL CALC A/G RATIO (test code = 2234) 1.7 RATIO BILIRUBIN, TOTAL (test code = 2207) 0.5 MG/DL ALKALINE PHOSPHATASE (test code = 2204) 84 U/L AST (test code = 2218) 18 U/L ALT (test code = 2219) 27 U/L COMPREHENSIVE METABOLIC [id number] 00:00:00* Test Item Value Reference Range Interpretation Comme nts GLUCOSE (test code = 2217) 143 MG/DL BUN (test code = 2208) 13 MG/DL CREATININE (test code = 2214) 0.90 MG/DL eGFR AMER. (test cod e = 47924) 117 ML/MIN/1.73 eGFR NON- AMER. (test code = 53523) 101 ML/MIN/1.73 CALC BUN/CREAT (test code = 2235) 14 RATIO SODIUM (test code = 2231) 141 MEQ/L POTASSIUM (test code = 2228) 4.6 MEQ/L CHLORIDE (test code = 2215) 103 MEQ/L CARBON DIOXIDE (test code = 2206) 27 MEQ/L CALCIUM (test code = 2209) 9.4 MG/DL PROTEIN, TOTAL (test code = 2229) 7.4 G/DL ALBUMIN (test code = 2201) 4.7 G/DL CALC GLOBULIN (test code = 2240) 2.7 G/DL CALC A/G RATIO (test code = 2234) 1.7 RATIO BILIRUBIN, TOTAL (test code = 2207) 0.5 MG/DL ALKALINE PHOSPHATASE (test code = 2204) 84 U/L AST (test code = 2218) 18 U/L ALT (test code = 2219) 27 U/L LIPID [id number] 00:00:00* Test Item Value Reference Range Interpretation Comme nts CHOLESTEROL (test code = 2210) 117 MG/DL TRIGLYCERIDES (test code = 2232) 114 MG/DL HDL CHOLESTEROL (test code = 2220) 30 MG/DL CALC LDL CHOL (test code = 2237) 64 MG/DL RISK RATIO LDL/HDL (test cod e = 2238) 2.14 RATIO LIPID [id number] 00:00:00* Test Item Value Reference Range Interpretation Comme nts CHOLESTEROL (test code = 2210) 117 MG/DL TRIGLYCERIDES (test code = 2232) 114 MG/DL HDL CHOLESTEROL (test code = 2220) 30 MG/DL CALC LDL CHOL (test code = 2237) 64 MG/DL RISK RATIO LDL/HDL (test cod e = 2238) 2.14 RATIO HEMOGLOBIN [id number] 00:00:00* Test Item Value Reference Range Interpretation Comme nts HEMOGLOBIN A1c (test code = 05985) 6.5 % HEMOGLOBIN [id number] 00:00:00* Test Item Value Reference Range Interpretation Comme nts HEMOGLOBIN A1c (test code = 40389) 6.5 % HEMOGLOBIN [id number] 00:00:00* Test Item Value Reference Range Interpretation Comme nts HEMOGLOBIN A1c (test code = 70456) 6.5 % MICROALBUMIN/CREATININE, RANDOM AND [id number] 00:00:00* Test Item Value Reference Range Interpretation Comme nts CREATININE, URINE, CONC. (te st code = 2072) 113.3 MG/DL ALBUMIN, URINE, RANDOM (test code = 29869) 1.5 MG/DL CALC ALBUMIN/CREAT, RND (paula t code = 12897) 13 MG/G MICROALBUMIN/CREATININE, RANDOM AND [id number] 00:00:00* Test Item Value Reference Range Interpretation Comme nts CREATININE, URINE, CONC. (te st code = 2072) 113.3 MG/DL ALBUMIN, URINE, RANDOM (test code = 37768) 1.5 MG/DL CALC ALBUMIN/CREAT, RND (paula t code = 73641) 13 MG/G TESTOSTERONE, FREE/TOTAL WITH [id number] 00:00:00* Test Item Value Reference Range Interpretation Comme nts TESTOSTERONE (test code = 2830) 256 NG/DL SEX HORM BIND GLOBULIN (test code = 4933) 24.6 NMOL/L CALC FREE TESTOSTERONE (test code = 78475) 58.3 PG/ML TESTOSTERONE, FREE/TOTAL WITH [id number] 00:00:00* Test Item Value Reference Range Interpretation Comme nts TESTOSTERONE (test code = 2830) 256 NG/DL SEX HORM BIND GLOBULIN (test code = 4933) 24.6 NMOL/L CALC FREE TESTOSTERONE (test code = 52126) 58.3 PG/ML COMPREHENSIVE METABOLIC [id number] 00:00:00* Test Item Value Reference Range Interpretation Comme nts GLUCOSE (test code = 2217) 143 MG/DL BUN (test code = 2208) 13 MG/DL CREATININE (test code = 2214) 0.90 MG/DL eGFR AMER. (test cod e = 25465) 117 ML/MIN/1.73 eGFR NON- AMER. (test code = 53891) 101 ML/MIN/1.73 CALC BUN/CREAT (test code = 2235) 14 RATIO SODIUM (test code = 2231) 141 MEQ/L POTASSIUM (test code = 2228) 4.6 MEQ/L CHLORIDE (test code = 2215) 103 MEQ/L CARBON DIOXIDE (test code = 2206) 27 MEQ/L CALCIUM (test code = 2209) 9.4 MG/DL PROTEIN, TOTAL (test code = 2229) 7.4 G/DL ALBUMIN (test code = 2201) 4.7 G/DL CALC GLOBULIN (test code = 2240) 2.7 G/DL CALC A/G RATIO (test code = 2234) 1.7 RATIO BILIRUBIN, TOTAL (test code = 2207) 0.5 MG/DL ALKALINE PHOSPHATASE (test code = 2204) 84 U/L AST (test code = 2218) 18 U/L ALT (test code = 2219) 27 U/L COMPREHENSIVE METABOLIC [id number] 00:00:00* Test Item Value Reference Range Interpretation Comme nts GLUCOSE (test code = 2217) 267 MG/DL BUN (test code = 2208) 18 MG/DL CREATININE (test code = 2214) 0.94 MG/DL eGFR AMER. (test cod e = 52743) 111 ML/MIN/1.73 eGFR NON- AMER. (test code = 98248) 96 ML/MIN/1.73 CALC BUN/CREAT (test code = 2235) 19 RATIO SODIUM (test code = 2231) 140 MEQ/L POTASSIUM (test code = 2228) 4.7 MEQ/L CHLORIDE (test code = 2215) 100 MEQ/L CARBON DIOXIDE (test code = 2206) 25 MEQ/L CALCIUM (test code = 2209) 9.6 MG/DL PROTEIN, TOTAL (test code = 2229) 7.5 G/DL ALBUMIN (test code = 2201) 4.4 G/DL CALC GLOBULIN (test code = 2240) 3.1 G/DL CALC A/G RATIO (test code = 2234) 1.4 RATIO BILIRUBIN, TOTAL (test code = 2207) 0.4 MG/DL ALKALINE PHOSPHATASE (test code = 2204) 80 U/L AST (test code = 2218) 20 U/L ALT (test code = 2219) 32 U/L COMPREHENSIVE METABOLIC [id number] 00:00:00* Test Item Value Reference Range Interpretation Comme nts GLUCOSE (test code = 2217) 267 MG/DL BUN (test code = 2208) 18 MG/DL CREATININE (test code = 2214) 0.94 MG/DL eGFR AMER. (test cod e = 31250) 111 ML/MIN/1.73 eGFR NON- AMER. (test code = 17852) 96 ML/MIN/1.73 CALC BUN/CREAT (test code = 2235) 19 RATIO SODIUM (test code = 2231) 140 MEQ/L POTASSIUM (test code = 2228) 4.7 MEQ/L CHLORIDE (test code = 2215) 100 MEQ/L CARBON DIOXIDE (test code = 2206) 25 MEQ/L CALCIUM (test code = 2209) 9.6 MG/DL PROTEIN, TOTAL (test code = 2229) 7.5 G/DL ALBUMIN (test code = 2201) 4.4 G/DL CALC GLOBULIN (test code = 2240) 3.1 G/DL CALC A/G RATIO (test code = 2234) 1.4 RATIO BILIRUBIN, TOTAL (test code = 2207) 0.4 MG/DL ALKALINE PHOSPHATASE (test code = 2204) 80 U/L AST (test code = 2218) 20 U/L ALT (test code = 2219) 32 U/L LIPID [id number] 00:00:00* Test Item Value Reference Range Interpretation Comme nts CHOLESTEROL (test code = 2210) 186 MG/DL TRIGLYCERIDES (test code = 2232) 478 MG/DL HDL CHOLESTEROL (test code = 2220) 31 MG/DL CALC LDL CHOL (test code = 2237) NOTE MG/DL RISK RATIO LDL/HDL (test cod e = 2238) (NOTE) RATIO LIPID [id number] 00:00:00* Test Item Value Reference Range Interpretation Comme nts CHOLESTEROL (test code = 2210) 186 MG/DL TRIGLYCERIDES (test code = 2232) 478 MG/DL HDL CHOLESTEROL (test code = 2220) 31 MG/DL CALC LDL CHOL (test code = 2237) NOTE MG/DL RISK RATIO LDL/HDL (test cod e = 2238) (NOTE) RATIO CBC W/AUTO [id number] 00:00:00* Test Item Value Reference Range Interpretation Comme nts WBC (test code = 1001) 7.4 K/UL RBC (test code = 1002) 4.88 M/UL HEMOGLOBIN (test code = 1003) 15.7 G/DL HEMATOCRIT (test code = 1004) 44.5 % MCV (test code = 1005) 91.2 fL MCH (test code = 1006) 32.2 PG MCHC (test code = 1007) 35.3 G/DL RDW (test code = 1038) 12.4 % NEUTROPHILS (test code = 1008) 48.6 % LYMPHOCYTES (test code = 1010) 39.5 % MONOCYTES (test code = 1011) 10.0 % EOSINOPHILS (test code = 1012) 1.2 % BASOPHILS (test code = 1013) 0.7 % PLATELET COUNT (test code = 1015) 229 K/UL CBC W/AUTO [id number] 00:00:00* Test Item Value Reference Range Interpretation Comme nts WBC (test code = 1001) 7.4 K/UL RBC (test code = 1002) 4.88 M/UL HEMOGLOBIN (test code = 1003) 15.7 G/DL HEMATOCRIT (test code = 1004) 44.5 % MCV (test code = 1005) 91.2 fL MCH (test code = 1006) 32.2 PG MCHC (test code = 1007) 35.3 G/DL RDW (test code = 1038) 12.4 % NEUTROPHILS (test code = 1008) 48.6 % LYMPHOCYTES (test code = 1010) 39.5 % MONOCYTES (test code = 1011) 10.0 % EOSINOPHILS (test code = 1012) 1.2 % BASOPHILS (test code = 1013) 0.7 % PLATELET COUNT (test code = 1015) 229 K/UL CBC W/AUTO [id number] 00:00:00* Test Item Value Reference Range Interpretation Comme nts WBC (test code = 1001) 7.4 K/UL RBC (test code = 1002) 4.88 M/UL HEMOGLOBIN (test code = 1003) 15.7 G/DL HEMATOCRIT (test code = 1004) 44.5 % MCV (test code = 1005) 91.2 fL MCH (test code = 1006) 32.2 PG MCHC (test code = 1007) 35.3 G/DL RDW (test code = 1038) 12.4 % NEUTROPHILS (test code = 1008) 48.6 % LYMPHOCYTES (test code = 1010) 39.5 % MONOCYTES (test code = 1011) 10.0 % EOSINOPHILS (test code = 1012) 1.2 % BASOPHILS (test code = 1013) 0.7 % PLATELET COUNT (test code = 1015) 229 K/UL HEMOGLOBIN [id number] 00:00:00* Test Item Value Reference Range Interpretation Comme nts HEMOGLOBIN A1c (test code = 82314) 10.7 % HEMOGLOBIN [id number] 00:00:00* Test Item Value Reference Range Interpretation Comme nts HEMOGLOBIN A1c (test code = 46918) 10.7 % HEMOGLOBIN [id number] 00:00:00* Test Item Value Reference Range Interpretation Comme nts HEMOGLOBIN A1c (test code = 02677) 10.7 % COMPREHENSIVE METABOLIC [id number] 00:00:00* Test Item Value Reference Range Interpretation Comme nts GLUCOSE (test code = 2217) 267 MG/DL BUN (test code = 2208) 18 MG/DL CREATININE (test code = 2214) 0.94 MG/DL eGFR AMER. (test cod e = 63800) 111 ML/MIN/1.73 eGFR NON- AMER. (test code = 17780) 96 ML/MIN/1.73 CALC BUN/CREAT (test code = 2235) 19 RATIO SODIUM (test code = 2231) 140 MEQ/L POTASSIUM (test code = 2228) 4.7 MEQ/L CHLORIDE (test code = 2215) 100 MEQ/L CARBON DIOXIDE (test code = 2206) 25 MEQ/L CALCIUM (test code = 2209) 9.6 MG/DL PROTEIN, TOTAL (test code = 2229) 7.5 G/DL ALBUMIN (test code = 2201) 4.4 G/DL CALC GLOBULIN (test code = 2240) 3.1 G/DL CALC A/G RATIO (test code = 2234) 1.4 RATIO BILIRUBIN, TOTAL (test code = 2207) 0.4 MG/DL ALKALINE PHOSPHATASE (test code = 2204) 80 U/L AST (test code = 2218) 20 U/L ALT (test code = 2219) 32 U/L COMPREHENSIVE METABOLIC [id number] 00:00:00* Test Item Value Reference Range Interpretation Comme nts GLUCOSE (test code = 2217) 267 MG/DL BUN (test code = 2208) 18 MG/DL CREATININE (test code = 2214) 0.94 MG/DL eGFR AMER. (test cod e = 20944) 111 ML/MIN/1.73 eGFR NON- AMER. (test code = 17014) 96 ML/MIN/1.73 CALC BUN/CREAT (test code = 2235) 19 RATIO SODIUM (test code = 2231) 140 MEQ/L POTASSIUM (test code = 2228) 4.7 MEQ/L CHLORIDE (test code = 2215) 100 MEQ/L CARBON DIOXIDE (test code = 2206) 25 MEQ/L CALCIUM (test code = 2209) 9.6 MG/DL PROTEIN, TOTAL (test code = 2229) 7.5 G/DL ALBUMIN (test code = 2201) 4.4 G/DL CALC GLOBULIN (test code = 2240) 3.1 G/DL CALC A/G RATIO (test code = 2234) 1.4 RATIO BILIRUBIN, TOTAL (test code = 2207) 0.4 MG/DL ALKALINE PHOSPHATASE (test code = 2204) 80 U/L AST (test code = 2218) 20 U/L ALT (test code = 2219) 32 U/L LIPID [id number] 00:00:00* Test Item Value Reference Range Interpretation Comme nts CHOLESTEROL (test code = 2210) 186 MG/DL TRIGLYCERIDES (test code = 2232) 478 MG/DL HDL CHOLESTEROL (test code = 2220) 31 MG/DL CALC LDL CHOL (test code = 2237) NOTE MG/DL RISK RATIO LDL/HDL (test cod e = 2238) (NOTE) RATIO LIPID [id number] 00:00:00* Test Item Value Reference Range Interpretation Comme nts CHOLESTEROL (test code = 2210) 186 MG/DL TRIGLYCERIDES (test code = 2232) 478 MG/DL HDL CHOLESTEROL (test code = 2220) 31 MG/DL CALC LDL CHOL (test code = 2237) NOTE MG/DL RISK RATIO LDL/HDL (test cod e = 2238) (NOTE) RATIO CBC W/AUTO [id number] 00:00:00* Test Item Value Reference Range Interpretation Comme nts WBC (test code = 1001) 7.4 K/UL RBC (test code = 1002) 4.88 M/UL HEMOGLOBIN (test code = 1003) 15.7 G/DL HEMATOCRIT (test code = 1004) 44.5 % MCV (test code = 1005) 91.2 fL MCH (test code = 1006) 32.2 PG MCHC (test code = 1007) 35.3 G/DL RDW (test code = 1038) 12.4 % NEUTROPHILS (test code = 1008) 48.6 % LYMPHOCYTES (test code = 1010) 39.5 % MONOCYTES (test code = 1011) 10.0 % EOSINOPHILS (test code = 1012) 1.2 % BASOPHILS (test code = 1013) 0.7 % PLATELET COUNT (test code = 1015) 229 K/UL CBC W/AUTO [id number] 00:00:00* Test Item Value Reference Range Interpretation Comme nts WBC (test code = 1001) 7.4 K/UL RBC (test code = 1002) 4.88 M/UL HEMOGLOBIN (test code = 1003) 15.7 G/DL HEMATOCRIT (test code = 1004) 44.5 % MCV (test code = 1005) 91.2 fL MCH (test code = 1006) 32.2 PG MCHC (test code = 1007) 35.3 G/DL RDW (test code = 1038) 12.4 % NEUTROPHILS (test code = 1008) 48.6 % LYMPHOCYTES (test code = 1010) 39.5 % MONOCYTES (test code = 1011) 10.0 % EOSINOPHILS (test code = 1012) 1.2 % BASOPHILS (test code = 1013) 0.7 % PLATELET COUNT (test code = 1015) 229 K/UL CBC W/AUTO [id number] 00:00:00* Test Item Value Reference Range Interpretation Comme nts WBC (test code = 1001) 7.4 K/UL RBC (test code = 1002) 4.88 M/UL HEMOGLOBIN (test code = 1003) 15.7 G/DL HEMATOCRIT (test code = 1004) 44.5 % MCV (test code = 1005) 91.2 fL MCH (test code = 1006) 32.2 PG MCHC (test code = 1007) 35.3 G/DL RDW (test code = 1038) 12.4 % NEUTROPHILS (test code = 1008) 48.6 % LYMPHOCYTES (test code = 1010) 39.5 % MONOCYTES (test code = 1011) 10.0 % EOSINOPHILS (test code = 1012) 1.2 % BASOPHILS (test code = 1013) 0.7 % PLATELET COUNT (test code = 1015) 229 K/UL HEMOGLOBIN [id number] 00:00:00* Test Item Value Reference Range Interpretation Comme nts HEMOGLOBIN A1c (test code = 73790) 10.7 % HEMOGLOBIN [id number] 00:00:00* Test Item Value Reference Range Interpretation Comme nts HEMOGLOBIN A1c (test code = 05074) 10.7 % HEMOGLOBIN [id number] 00:00:00* Test Item Value Reference Range Interpretation Comme nts HEMOGLOBIN A1c (test code = 30734) 10.7 % LIPID [id number] 00:00:00* Test Item Value Reference Range Interpretation Comme nts CHOLESTEROL (test code = 2210) 150 MG/DL TRIGLYCERIDES (test code = 2232) 140 MG/DL HDL CHOLESTEROL (test code = 2220) 32 MG/DL CALC LDL CHOL (test code = 2237) 90 MG/DL RISK RATIO LDL/HDL (test cod e = 2238) 2.81 RATIO COMPREHENSIVE METABOLIC [id number] 00:00:00* Test Item Value Reference Range Interpretation Comme nts GLUCOSE (test code = 2217) 138 MG/DL BUN (test code = 2208) 18 MG/DL CREATININE (test code = 2214) 0.81 MG/DL eGFR AMER. (test cod e = 08410) 124 ML/MIN/1.73 eGFR NON- AMER. (test code = 09492) 107 ML/MIN/1.73 CALC BUN/CREAT (test code = 2235) 22 RATIO SODIUM (test code = 2231) 138 MEQ/L POTASSIUM (test code = 2228) 4.3 MEQ/L CHLORIDE (test code = 2215) 98 MEQ/L CARBON DIOXIDE (test code = 2206) 27 MEQ/L CALCIUM (test code = 2209) 9.5 MG/DL PROTEIN, TOTAL (test code = 2229) 6.9 G/DL ALBUMIN (test code = 2201) 4.2 G/DL CALC GLOBULIN (test code = 2240) 2.7 G/DL CALC A/G RATIO (test code = 2234) 1.6 RATIO BILIRUBIN, TOTAL (test code = 2207) 0.4 MG/DL ALKALINE PHOSPHATASE (test code = 2204) 71 U/L AST (test code = 2218) 18 U/L ALT (test code = 2219) 20 U/L COMPREHENSIVE METABOLIC [id number] 00:00:00* Test Item Value Reference Range Interpretation Comme nts GLUCOSE (test code = 2217) 138 MG/DL BUN (test code = 2208) 18 MG/DL CREATININE (test code = 2214) 0.81 MG/DL eGFR AMER. (test cod e = 12293) 124 ML/MIN/1.73 eGFR NON- AMER. (test code = 32903) 107 ML/MIN/1.73 CALC BUN/CREAT (test code = 2235) 22 RATIO SODIUM (test code = 2231) 138 MEQ/L POTASSIUM (test code = 2228) 4.3 MEQ/L CHLORIDE (test code = 2215) 98 MEQ/L CARBON DIOXIDE (test code = 2206) 27 MEQ/L CALCIUM (test code = 2209) 9.5 MG/DL PROTEIN, TOTAL (test code = 2229) 6.9 G/DL ALBUMIN (test code = 2201) 4.2 G/DL CALC GLOBULIN (test code = 2240) 2.7 G/DL CALC A/G RATIO (test code = 2234) 1.6 RATIO BILIRUBIN, TOTAL (test code = 2207) 0.4 MG/DL ALKALINE PHOSPHATASE (test code = 2204) 71 U/L AST (test code = 2218) 18 U/L ALT (test code = 2219) 20 U/L HEMOGLOBIN [id number] 00:00:00* Test Item Value Reference Range Interpretation Comme nts HEMOGLOBIN A1c (test code = 88526) 7.3 % HEMOGLOBIN [id number] 00:00:00* Test Item Value Reference Range Interpretation Comme nts HEMOGLOBIN A1c (test code = 52220) 7.3 % HEMOGLOBIN [id number] 00:00:00* Test Item Value Reference Range Interpretation Comme nts HEMOGLOBIN A1c (test code = 20370) 7.3 % [id number] 00:00:00* Test Item Value Reference Range Interpretation Comme nts TESTOSTERONE (test code = 2830) 333 NG/DL [id number] 00:00:00* Test Item Value Reference Range Interpretation Comme nts TESTOSTERONE (test code = 2830) 333 NG/DL LIPID [id number] 00:00:00* Test Item Value Reference Range Interpretation Comme nts CHOLESTEROL (test code = 2210) 150 MG/DL TRIGLYCERIDES (test code = 2232) 140 MG/DL HDL CHOLESTEROL (test code = 2220) 32 MG/DL CALC LDL CHOL (test code = 2237) 90 MG/DL RISK RATIO LDL/HDL (test cod e = 2238) 2.81 RATIO LIPID [id number] 00:00:00* Test Item Value Reference Range Interpretation Comme nts CHOLESTEROL (test code = 2210) 150 MG/DL TRIGLYCERIDES (test code = 2232) 140 MG/DL HDL CHOLESTEROL (test code = 2220) 32 MG/DL CALC LDL CHOL (test code = 2237) 90 MG/DL RISK RATIO LDL/HDL (test cod e = 2238) 2.81 RATIO COMPREHENSIVE METABOLIC [id number] 00:00:00* Test Item Value Reference Range Interpretation Comme nts GLUCOSE (test code = 2217) 138 MG/DL BUN (test code = 2208) 18 MG/DL CREATININE (test code = 2214) 0.81 MG/DL eGFR AMER. (test cod e = 07300) 124 ML/MIN/1.73 eGFR NON- AMER. (test code = 14615) 107 ML/MIN/1.73 CALC BUN/CREAT (test code = 2235) 22 RATIO SODIUM (test code = 2231) 138 MEQ/L POTASSIUM (test code = 2228) 4.3 MEQ/L CHLORIDE (test code = 2215) 98 MEQ/L CARBON DIOXIDE (test code = 2206) 27 MEQ/L CALCIUM (test code = 2209) 9.5 MG/DL PROTEIN, TOTAL (test code = 2229) 6.9 G/DL ALBUMIN (test code = 2201) 4.2 G/DL CALC GLOBULIN (test code = 2240) 2.7 G/DL CALC A/G RATIO (test code = 2234) 1.6 RATIO BILIRUBIN, TOTAL (test code = 2207) 0.4 MG/DL ALKALINE PHOSPHATASE (test code = 2204) 71 U/L AST (test code = 2218) 18 U/L ALT (test code = 2219) 20 U/L COMPREHENSIVE METABOLIC [id number] 00:00:00* Test Item Value Reference Range Interpretation Comme nts GLUCOSE (test code = 2217) 138 MG/DL BUN (test code = 2208) 18 MG/DL CREATININE (test code = 2214) 0.81 MG/DL eGFR AMER. (test cod e = 22289) 124 ML/MIN/1.73 eGFR NON- AMER. (test code = 46729) 107 ML/MIN/1.73 CALC BUN/CREAT (test code = 2235) 22 RATIO SODIUM (test code = 2231) 138 MEQ/L POTASSIUM (test code = 2228) 4.3 MEQ/L CHLORIDE (test code = 2215) 98 MEQ/L CARBON DIOXIDE (test code = 2206) 27 MEQ/L CALCIUM (test code = 2209) 9.5 MG/DL PROTEIN, TOTAL (test code = 2229) 6.9 G/DL ALBUMIN (test code = 2201) 4.2 G/DL CALC GLOBULIN (test code = 2240) 2.7 G/DL CALC A/G RATIO (test code = 2234) 1.6 RATIO BILIRUBIN, TOTAL (test code = 2207) 0.4 MG/DL ALKALINE PHOSPHATASE (test code = 2204) 71 U/L AST (test code = 2218) 18 U/L ALT (test code = 2219) 20 U/L HEMOGLOBIN [id number] 00:00:00* Test Item Value Reference Range Interpretation Comme nts HEMOGLOBIN A1c (test code = 18245) 7.3 % HEMOGLOBIN [id number] 00:00:00* Test Item Value Reference Range Interpretation Comme nts HEMOGLOBIN A1c (test code = 74318) 7.3 % HEMOGLOBIN [id number] 00:00:00* Test Item Value Reference Range Interpretation Comme nts HEMOGLOBIN A1c (test code = 36641) 7.3 % [id number] 00:00:00* Test Item Value Reference Range Interpretation Comme nts TESTOSTERONE (test code = 2830) 333 NG/DL [id number] 00:00:00* Test Item Value Reference Range Interpretation Comme nts TESTOSTERONE (test code = 2830) 333 NG/DL LIPID [id number] 00:00:00* Test Item Value Reference Range Interpretation Comme nts CHOLESTEROL (test code = 2210) 150 MG/DL TRIGLYCERIDES (test code = 2232) 140 MG/DL HDL CHOLESTEROL (test code = 2220) 32 MG/DL CALC LDL CHOL (test code = 2237) 90 MG/DL RISK RATIO LDL/HDL (test cod e = 2238) 2.81 RATIO COMPREHENSIVE METABOLIC [id number] 00:00:00* Test Item Value Reference Range Interpretation Comme nts GLUCOSE (test code = 2217) 363 MG/DL BUN (test code = 2208) 16 MG/DL CREATININE (test code = 2214) 0.81 MG/DL eGFR AMER. (test cod e = 61348) 124 ML/MIN/1.73 eGFR NON- AMER. (test code = 73502) 107 ML/MIN/1.73 CALC BUN/CREAT (test code = 2235) 20 RATIO SODIUM (test code = 2231) 138 MEQ/L POTASSIUM (test code = 2228) 4.2 MEQ/L CHLORIDE (test code = 2215) 96 MEQ/L CARBON DIOXIDE (test code = 2206) 26 MEQ/L CALCIUM (test code = 2209) 9.3 MG/DL PROTEIN, TOTAL (test code = 2229) 7.0 G/DL ALBUMIN (test code = 2201) 4.4 G/DL CALC GLOBULIN (test code = 2240) 2.6 G/DL CALC A/G RATIO (test code = 2234) 1.7 RATIO BILIRUBIN, TOTAL (test code = 2207) 0.3 MG/DL ALKALINE PHOSPHATASE (test code = 2204) 97 U/L AST (test code = 2218) 14 U/L ALT (test code = 2219) 22 U/L LIPID [id number] 00:00:00* Test Item Value Reference Range Interpretation Comme nts CHOLESTEROL (test code = 2210) 188 MG/DL TRIGLYCERIDES (test code = 2232) 421 MG/DL HDL CHOLESTEROL (test code = 2220) 30 MG/DL CALC LDL CHOL (test code = 2237) NOTE MG/DL RISK RATIO LDL/HDL (test cod e = 2238) (NOTE) RATIO LIPID [id number] 00:00:00* Test Item Value Reference Range Interpretation Comme nts CHOLESTEROL (test code = 2210) 188 MG/DL TRIGLYCERIDES (test code = 2232) 421 MG/DL HDL CHOLESTEROL (test code = 2220) 30 MG/DL CALC LDL CHOL (test code = 2237) NOTE MG/DL RISK RATIO LDL/HDL (test cod e = 2238) (NOTE) RATIO HEMOGLOBIN [id number] 00:00:00* Test Item Value Reference Range Interpretation Comme nts HEMOGLOBIN A1c (test code = 99198) 11.0 % HEMOGLOBIN [id number] 00:00:00* Test Item Value Reference Range Interpretation Comme nts HEMOGLOBIN A1c (test code = 82681) 11.0 % HEMOGLOBIN [id number] 00:00:00* Test Item Value Reference Range Interpretation Comme nts HEMOGLOBIN A1c (test code = 00623) 11.0 % COMPREHENSIVE METABOLIC [id number] 00:00:00* Test Item Value Reference Range Interpretation Comme nts GLUCOSE (test code = 2217) 363 MG/DL BUN (test code = 2208) 16 MG/DL CREATININE (test code = 2214) 0.81 MG/DL eGFR AMER. (test cod e = 67420) 124 ML/MIN/1.73 eGFR NON- AMER. (test code = 90547) 107 ML/MIN/1.73 CALC BUN/CREAT (test code = 2235) 20 RATIO SODIUM (test code = 2231) 138 MEQ/L POTASSIUM (test code = 2228) 4.2 MEQ/L CHLORIDE (test code = 2215) 96 MEQ/L CARBON DIOXIDE (test code = 2206) 26 MEQ/L CALCIUM (test code = 2209) 9.3 MG/DL PROTEIN, TOTAL (test code = 2229) 7.0 G/DL ALBUMIN (test code = 2201) 4.4 G/DL CALC GLOBULIN (test code = 2240) 2.6 G/DL CALC A/G RATIO (test code = 2234) 1.7 RATIO BILIRUBIN, TOTAL (test code = 2207) 0.3 MG/DL ALKALINE PHOSPHATASE (test code = 2204) 97 U/L AST (test code = 2218) 14 U/L ALT (test code = 2219) 22 U/L COMPREHENSIVE METABOLIC [id number] 00:00:00* Test Item Value Reference Range Interpretation Comme nts GLUCOSE (test code = 2217) 363 MG/DL BUN (test code = 2208) 16 MG/DL CREATININE (test code = 2214) 0.81 MG/DL eGFR AMER. (test cod e = 18691) 124 ML/MIN/1.73 eGFR NON- AMER. (test code = 32395) 107 ML/MIN/1.73 CALC BUN/CREAT (test code = 2235) 20 RATIO SODIUM (test code = 2231) 138 MEQ/L POTASSIUM (test code = 2228) 4.2 MEQ/L CHLORIDE (test code = 2215) 96 MEQ/L CARBON DIOXIDE (test code = 2206) 26 MEQ/L CALCIUM (test code = 2209) 9.3 MG/DL PROTEIN, TOTAL (test code = 2229) 7.0 G/DL ALBUMIN (test code = 2201) 4.4 G/DL CALC GLOBULIN (test code = 2240) 2.6 G/DL CALC A/G RATIO (test code = 2234) 1.7 RATIO BILIRUBIN, TOTAL (test code = 2207) 0.3 MG/DL ALKALINE PHOSPHATASE (test code = 2204) 97 U/L AST (test code = 2218) 14 U/L ALT (test code = 2219) 22 U/L LIPID [id number] 00:00:00* Test Item Value Reference Range Interpretation Comme nts CHOLESTEROL (test code = 2210) 188 MG/DL TRIGLYCERIDES (test code = 2232) 421 MG/DL HDL CHOLESTEROL (test code = 2220) 30 MG/DL CALC LDL CHOL (test code = 2237) NOTE MG/DL RISK RATIO LDL/HDL (test cod e = 2238) (NOTE) RATIO LIPID [id number] 00:00:00* Test Item Value Reference Range Interpretation Comme nts CHOLESTEROL (test code = 2210) 188 MG/DL TRIGLYCERIDES (test code = 2232) 421 MG/DL HDL CHOLESTEROL (test code = 2220) 30 MG/DL CALC LDL CHOL (test code = 2237) NOTE MG/DL RISK RATIO LDL/HDL (test cod e = 2238) (NOTE) RATIO HEMOGLOBIN [id number] 00:00:00* Test Item Value Reference Range Interpretation Comme nts HEMOGLOBIN A1c (test code = 92649) 11.0 % HEMOGLOBIN [id number] 00:00:00* Test Item Value Reference Range Interpretation Comme nts HEMOGLOBIN A1c (test code = 29999) 11.0 % HEMOGLOBIN [id number] 00:00:00* Test Item Value Reference Range Interpretation Comme nts HEMOGLOBIN A1c (test code = 54622) 11.0 % COMPREHENSIVE METABOLIC [id number] 00:00:00* Test Item Value Reference Range Interpretation Comme nts GLUCOSE (test code = 2217) 363 MG/DL BUN (test code = 2208) 16 MG/DL CREATININE (test code = 2214) 0.81 MG/DL eGFR AMER. (test cod e = 04767) 124 ML/MIN/1.73 eGFR NON- AMER. (test code = 93970) 107 ML/MIN/1.73 CALC BUN/CREAT (test code = 2235) 20 RATIO SODIUM (test code = 2231) 138 MEQ/L POTASSIUM (test code = 2228) 4.2 MEQ/L CHLORIDE (test code = 2215) 96 MEQ/L CARBON DIOXIDE (test code = 2206) 26 MEQ/L CALCIUM (test code = 2209) 9.3 MG/DL PROTEIN, TOTAL (test code = 2229) 7.0 G/DL ALBUMIN (test code = 2201) 4.4 G/DL CALC GLOBULIN (test code = 2240) 2.6 G/DL CALC A/G RATIO (test code = 2234) 1.7 RATIO BILIRUBIN, TOTAL (test code = 2207) 0.3 MG/DL ALKALINE PHOSPHATASE (test code = 2204) 97 U/L AST (test code = 2218) 14 U/L ALT (test code = 2219) 22 U/L
[2024-01-28] MEDS ORDERED: NA CHLORIDE 0.9% 1,000 ML ONE (16:30)
[2024-01-28 16:44] LABS: Absolute Eosinophils 0.1 K/uL (0-0.5); Absolute Lymphocytes (CBC) 2.3 K/uL (0.7-4.9); Absolute Monocytes 1.1 K/uL (0.1-1.3); Absolute Neutrophil 4.5 K/uL (1.8-8.0); Basophils % 0.6 % (0-1.3); Hematocrit 43.9 % (39.6-49.0); Hemoglobin 15.2 g/dL (13.6-17.9); Lymphocytes % 28.5 % (15.3-44.8); MCH 30.5 pg (27.0-35.0); MCHC 34.8 g/dL (32.0-36.0); MCV 87.7 fL (80-100); MPV 8.5 fL (7.6-11.3); Monocytes % 13.3 % (3.3-12.3); Neutrophils % 56.6 % (41.7-73.7); Platelets 209 thou/uL (152-406); Red Cell Distribution Width 13.6 % (12.1-15.2)
[2024-01-28 16:53] LABS: SARS-CoV-2 Antigen CONTROL BLUE LINE VIS/BG OK; SARS-CoV-2 Antigen Rapid Res Negative (Negative)
[2024-01-28 17:02] LABS: Albumin 3.7 g/dL (3.4-5.0); Albumin/Globulin Ratio 0.9 (1.1-1.8); Anion Gap 14.6 mEq/L (5.0-15.0); Bilirubin Total 0.6 mg/dL (0.2-1.0); Potassium 3.6 mEq/L (3.5-5.1); Protein, Total 7.7 g/dL (6.4-8.2)
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
--- NOTE | 2024-01-28 17:13 | EDPHYS ---
Physician Documentation [facility] Name: Marciano Causey Age: 53 yrs Sex: Male : 1970 Arrival Date: 01/28/2024 Time: 16:00 Bed 16 Private MD: ED Physician Bruce De Oliveira HPI: 01/27 16:24 This 53 yrs old Male presents to ER via Unassigned with complaints of Vomiting/Diarrhea kb - body chills and fever. 16:24 Pt is a 53 year old male who presents with cough, congestion, fever, chills, bodyaches, kb vomiting and diarrhea that started 2 days ago. States he vomited on the first day, but not since then. Denies abd pain. Historical: - Allergies: 16:25 No Known Allergies; ap3 - PMHx: 16:25 Diabetes mellitus; Hypertensive disorder; ap3 - Immunization history:: Client reports receiving the 2nd dose of the Covid vaccine, Flu vaccine is up to date. - Social history:: Smoking status: Reported history of juuling and/or vaping. Patient uses alcohol, occasionally. ROS: 16:24 Constitutional: As per HPI kb Exam: 16:24 Constitutional: This is a well developed, well nourished patient who is awake, alert, kb and in no acute distress. Head/Face: Normocephalic, atraumatic. ENT: Moist Mucous membranes Cardiovascular: Regular rate Respiratory: Respirations even and unlabored. No increased work of breathing. Talking in full sentences Abdomen/GI: Soft, non-tender. No distention Skin: Warm, dry with normal turgor. Normal color. MS/ Extremity: Pulses equal, no cyanosis. Neurovascular intact. Full, normal range of motion. Neuro: Awake and alert, GCS 15, oriented to person, place, time, and situation. Moves all extremities. Normal gait. Vital Signs: 16:22 BP 127 / 86; Pulse 98; Resp 17; Temp 98.5; Pulse Ox 95% on R/A; Weight 90.72 kg; Height ap3 5 ft. 4 in. ; 17:30 BP 125 / 81; Pulse 77; Resp 18; Temp 98(O); Pulse Ox 99% ; rs5 16:22 Body Mass Index 34.33 (90.72 kg, 162.56 cm) ap3 MDM: 16:03 Patient medically screened. kb 16:25 Differential diagnosis: flu, covid, uri, dehydration, abnormal electrolytes. Data kb reviewed: vital signs, nurses notes. 17:12 I considered the following discharge prescriptions or medication management in the emergency department I discussed and recommended Over The Counter medications, Antibiotics: At this time antibiotics are not recommended, Antivirals: At this time, antivirals are not recommended. Counseling: I had a detailed discussion with the patient and/or guardian regarding the historical points, exam findings, and any diagnostic results supporting the discharge/admit diagnosis, lab results, the need for outpatient follow up, a family practitioner, to return to the emergency department if symptoms worsen or persist or if there are any questions or concerns that arise at home. 01/27 16:23 Order name: CBC with Diff; Complete Time: 17:02 kb 01/27 16:23 Order name: CMP; Complete Time: 17:03 kb 01/27 16:23 Order name: COVID-19 SARS RT PCR kb 01/27 16:23 Order name: Flu; Complete Time: 17:11 kb 01/27 16:30 Order name: SARS RAPID; Complete Time: 17:02 bc6 01/27 16:23 Order name: IV Start; Complete Time: 16:29 kb Administered Medications: 16:30 Drug: NS 0.9% IV 1000 ml IV at 1000 ml once Route: IV; Rate: 1000 ml; Site: left rs5 antecubital; 16:45 Follow up: Response: No adverse reaction rs5 17:08 Follow up: IV Status: Completed infusion rs5 Disposition: 17:49 Co-signature as Attending Physician, Bruce De Oliveira MD I reviewed the patient's care rn provided by the Advanced Practice Provider and agree with the diagnosis and treatment plan. Disposition Summary: 01/28/24 17:12 Discharge Ordered Notes: Location: Home Condition: Stable Diagnosis - Influenza due to identified novel influenza A virus Followup: kb - With: Emergency Department - When: As needed - Reason: Worsening of condition Followup: kb - With: Private Physician - When: 2 - 3 days - Reason: Recheck today's complaints, Continuance of care, Re-evaluation by your physician Discharge Instructions: - Discharge Summary Sheet kb - Influenza, Adult, [id number] kb Forms: - Medication Reconciliation Form kb - Thank You Letter kb - Antibiotic Education kb - Prescription Opioid Use kb - Patient Portal Instructions kb - Leadership Thank You Letter kb Signatures: Dispatcher [employer] Maddy Michele, CROP DUSTER HELPER-C RUSTY-Bruce De La Rosa MD MD rn Radha Ordonez RN RN ap3 Coy Tavares RN RN rs5
[2024-01-28 18:03] VITALS: BP 125/81; TEMP 98; O2SAT 99
== END 2024-01-28 17:32 | disposition home or self-care (01) ==
LOC: ER 16:00
DX: J10.1 Influenza due to other identified influenza virus with other respiratory manifestations (principal); E11.9 Type 2 diabetes mellitus without complications; I10 Essential (primary) hypertension; Z11.52 Encounter for screening for COVID-19
CPT/HCPCS: 85025; 36415; 80053; 87804 ×2; 96360; 99284; 87811; J7030

== ENCOUNTER 2024-08-02 04:12 | Emergency (ER) | payer BC, SELFPAY ==
--- OUTSIDE RECORDS SUMMARY | 2024-08-02 04:15 | XMS REPORT | Continuity of Care Document ---
Author Name Unknown Address [address] [facility] [address] [place] [address] [facility] Address [address] [address] [address] [place] [address] Care Team Providers Care Tagman Name Role Phone Nelsy Self Primary Care Physician [phone] Javier Mansfield Attending Clinician Unavailable Physician, No [...] Signature (SIG) Comments Components Source Dose Unknown - 00:00: 00 No Dose Unknown 05-06 00:00: 00 No metformin 850 mg tablet - 00:00: 00 No 1mg lovastatin 10 mg tablet - 00:00: 00 No 1mg glipizide 10 mg tablet 3- 00:00: 00 No 1mg lisinopril 2.5 mg tablet 3-09 00:00: 00 No 1mg metformin 850 mg tablet 3- 00:00: 00 No 1mg lovastatin 10 mg tablet 3 00:00: 00 No 1mg Dose Unknown 2020-11 00:00: 00 No Dose Unknown 2020-11 00:00: 00 No metformin 850 mg tablet 2020-11 00:00: 00 No 1mg lovastatin 10 mg tablet 2020-11 00:00: 00 No 1mg Dose Unknown 0 07-08 00:00: 00 No lisinopril 2.5 mg tablet 0 07-08 00:00: 00 No 1mg metformin 850 mg tablet 0 07-08 00:00: 00 No 1mg lovastatin 10 mg tablet 0 07-08 00:00: 00 No 1mg glipizide 10 mg tablet 0 07-05 00:00: 00 No 1mg lisinopril 2.5 mg tablet 0 07-05 00:00: 00 No 1mg metformin 850 mg tablet 0 07-05 00:00: 00 No 1mg lovastatin 10 mg tablet 0 07-05 00:00: 00 No 1mg Dose Unknown 0 03-17 00:00: 00 No Dose Unknown 0 03-17 00:00: 00 No Dose Unknown 0 03-17 00:00: 00 No Dose Unknown 0 517 00:00: 00 No lisinopril 2.5 mg tablet 0 - 00:00: 00 No 1mg Dose Unknown 0 3- 00:00: 00 No metformin 850 mg tablet 0 3- 00:00: 00 No 1mg lovastatin 10 mg tablet 0 - 00:00: 00 No 1mg lisinopril 2.5 mg tablet 0 3-19 00:00: 00 No 1mg glipizide 5 mg tablet 0 3-19 00:00: 00 No 1mg metformin 850 mg tablet 0 3-19 00:00: 00 No 1mg lovastatin 10 mg tablet 0 3-19 00:00: 00 No 1mg lisinopril 2.5 mg tablet 0 1-21 00:00: 00 No 1mg glipizide 5 mg [...] 00 No 1mg lisinopril 2.5 mg tablet 2 00:00: 00 No 1mg metformin 850 mg [...] Goal Plan of Care Note [code = 52062-7] Goal Plan of Care Note [code = 90780-0] Goal Plan of Care Note [code = 17390-3] Goal Plan of Care Note [code = 65449-5] Goal Plan of Care Note [code = 78596-7] Goal Plan of Care Note [code = 01681-9] Goal Plan of Care Note [code = 14058-2] Goal Plan of Care Note [code = 97838-7] Goal Plan of Care Note [code = 16562-6] Goal Plan of Care Note [code = 62852-2] Goal Plan of Care Note [code = 69737-9] Goal Plan of Care Note [code = 35276-8] Goal Plan of Care Note [code = 24490-8] Goal Plan of Care Note [code = 47533-3] Goal Plan of Care Note [code = 02629-1] Goal Plan of Care Note [code = 24622-4] Goal Plan of Care Note [code = 31980-5] Goal Plan of Care Note [code = 90717-6] Goal Plan of Care Note [code = 75967-6] Goal Plan of Care Note [code = 49202-9] Goal Plan of Care Note [code = 44757-7] Goal Plan of Care Note [code = 55904-3] Goal Plan of Care Note [code = 17436-9] Goal Plan of Care Note [code = 98081-5] Goal Plan of Care Note [code = 29940-2] Goal Plan of Care Note [code = 31428-6] Encounters Start Date/Time End Date/Time Encounter Type Admission Type Attending Clinicians Care Facility Care Department Encounter ID Source 2022-08-01 13:09:00 Inpatient Javier Rollins [facility] [id number] 96 [facility] 2023-06-21 14:34:25 2023-06-21 14:34:25 Outpatient SFA SFA 0821 [facility] 2022-10-15 08:03:02 2022-10-15 08:03:02 Outpatient SFA SFA 1215 Gonzalo Wells 2022-07-10 08:00:00 2022-07-31 00:00:00 Outpatient Javier Rollins [facility] DIAB [id number] 69 [facility] 2022-07-21 00:00:00 2022-07-21 00:00:00 Outpatient Visit [id number] 2022-06-26 08:30:00 2022-07-01 00:00:00 Outpatient Javier Rollins [facility] DIAB [id number] 53 [facility] 2022-05-06 00:00:00 2022-05-06 00:00:00 Outpatient Visit [id number] Results Test Description Test Time Test Comments Results Result Co mments Source COMPREHENSIVE METABOLIC [id number] 04:27:04* Test Item Value Reference Range Interpretation Comme nts GLUCOSE (test code = 2217) 292 MG/DL 70-99 H BUN (test code = 2208) 19 MG/DL 6-20 CREATININE (test code = 2214) 0.86 MG/DL 0.80-1.40 eGFR (2020 CKD-EPI) (test code = 65963) 105 ML/MIN/1.73 >60 CALC BUN/CREAT (test code = 2235) 22 RATIO 6-28 SODIUM (test code = 2231) 135 MEQ/L 133-146 POTASSIUM (test code = 2228) 4.6 MEQ/L 3.5-5.4 CHLORIDE (test code = 2215) 101 MEQ/L 95-107 CARBON DIOXIDE (test code = 2206) 24 MEQ/L 19-31 CALCIUM (test code = 2209) 9.5 MG/DL 8.5-10.5 PROTEIN, TOTAL (test code = 2229) 7.1 G/DL 6.1-8.3 ALBUMIN (test code = 2201) 4.0 G/DL 3.5-5.2 CALC GLOBULIN (test code = 2240) 3.1 G/DL 1.9-3.7 CALC A/G RATIO (test code = 2234) 1.3 RATIO 1.0-2.6 BILIRUBIN, TOTAL (test code = 2207) 0.4 MG/DL See_Comment [Automated me ssage] The system which generated this result transmitted reference range: <=1.2. The reference range was not used to interpret this result as normal/abnormal. ALKALINE PHOSPHATASE (test code = 2204) 82 U/L 40-121 AST (test code = 2218) 33 U/L 9-50 ALT (test code = 2219) 51 U/L 5-50 H HEMOGLOBIN [id number] 03:07:46* Test Item Value Reference Range Interpretation Comme nts HEMOGLOBIN A1c (test code = 84731) 10.0 % 4.2-5.6 H [employer] GUIDELINES FOR HGB A1C: [...] CONSULTATION. UNLESS OTHERWISE INDICATED, ALL TESTING PERFORMED [facility] [address] [place] [id number] [employer] SUPERVISOR: CHANDLER MOLINA M.D. [place] NUMBER [id number] [facility] [place] [id number] COMPREHENSIVE METABOLIC [id number] 00:00:00* Test Item Value Reference Range Interpretation Comme nts GLUCOSE (test code = 2217) 201 MG/DL BUN (test code = 2208) 16 MG/DL CREATININE (test code = 2214) 0.95 MG/DL eGFR AMER. (test cod e = 81466) 108 ML/MIN/1.73 eGFR NON- AMER. (test code = 55065) 93 ML/MIN/1.73 CALC BUN/CREAT (test code = [...] (test code = 2219) 40 U/L HEMOGLOBIN [id number] 00:00:00* Test Item Value Reference Range Interpretation Comme nts HEMOGLOBIN A1c (test code = 29854) 7.4 % COMPREHENSIVE METABOLIC [id number] 00:00:00* Test Item Value Reference Range Interpretation Comme nts GLUCOSE (test code = 2217) 201 MG/DL BUN (test code = 2208) 16 MG/DL CREATININE (test code = 2214) 0.95 MG/DL eGFR AMER. (test cod e = 34052) 108 ML/MIN/1.73 eGFR NON- AMER. (test code = 40428) 93 ML/MIN/1.73 CALC BUN/CREAT (test code = [...] (test code = 2219) 40 U/L HEMOGLOBIN [id number] 00:00:00* Test Item Value Reference Range Interpretation Comme nts HEMOGLOBIN A1c (test code = 23815) 7.4 % CBC W/AUTO [id number] 00:00:00* Test Item Value Reference Range Interpretation [...] ABS NUCLEATED RBCS (test cod e = 54430) 0.00 K/UL COMPREHENSIVE METABOLIC [id number] 00:00:00* Test Item Value Reference Range Interpretation Comme nts GLUCOSE (test code = 2217) 191 MG/DL BUN (test code = 2208) 19 MG/DL CREATININE (test code = 2214) 0.81 MG/DL eGFR AMER. (test cod e = 44840) 121 ML/MIN/1.73 eGFR NON- AMER. (test code = 02652) 104 ML/MIN/1.73 CALC BUN/CREAT (test code = [...] (test code = 2219) 45 U/L LIPID [id number] 00:00:00* Test Item Value Reference Range Interpretation Comme nts CHOLESTEROL (test code = 2210) 138 MG/DL TRIGLYCERIDES (test code = 2232) 143 MG/DL HDL CHOLESTEROL (test code = 2220) 33 MG/DL CALC LDL CHOL (test code = 2237) 81 MG/DL RISK RATIO LDL/HDL (test cod e = 2238) 2.45 RATIO HEMOGLOBIN [id number] 00:00:00* Test Item Value Reference Range Interpretation Comme nts HEMOGLOBIN A1c (test code = 16938) 8.2 % [id number] 00:00:00* Test Item Value Reference Range Interpretation Comme nts TESTOSTERONE (test code = 2830) 307 NG/DL CBC W/AUTO [id number] 00:00:00* Test Item Value Reference Range Interpretation [...] ABS NUCLEATED RBCS (test cod e = 77270) 0.00 K/UL COMPREHENSIVE METABOLIC [id number] 00:00:00* Test Item Value Reference Range Interpretation Comme nts GLUCOSE (test code = 2217) 191 MG/DL BUN (test code = 2208) 19 MG/DL CREATININE (test code = 2214) 0.81 MG/DL eGFR AMER. (test cod e = 10204) 121 ML/MIN/1.73 eGFR NON- AMER. (test code = 89330) 104 ML/MIN/1.73 CALC BUN/CREAT (test code = [...] (test code = 2219) 45 U/L LIPID [id number] 00:00:00* Test Item Value Reference Range Interpretation Comme nts CHOLESTEROL (test code = 2210) 138 MG/DL TRIGLYCERIDES (test code = 2232) 143 MG/DL HDL CHOLESTEROL (test code = 2220) 33 MG/DL CALC LDL CHOL (test code = 2237) 81 MG/DL RISK RATIO LDL/HDL (test cod e = 2238) 2.45 RATIO HEMOGLOBIN [id number] 00:00:00* Test Item Value Reference Range Interpretation Comme nts HEMOGLOBIN A1c (test code = 56484) 8.2 % [id number] 00:00:00* Test Item Value Reference Range Interpretation Comme nts TESTOSTERONE (test code = 2830) 307 NG/DL SARS-CoV-2 (COVID-19) by RT-PCR (HIGH RISK)2020-10-04 00:00:00* Test Item Value Reference Range Interpretation Comme nts SARS-CoV-2 INTERPRETATION (t est code = 06119) NEGATIVE SOURCE (test code = 48234) NOT SPECIFIED SARS-CoV-2 (COVID-19) by RT-PCR (HIGH RISK)2020-10-04 00:00:00* Test Item Value Reference Range Interpretation Comme nts SARS-CoV-2 INTERPRETATION (t est code = 50431) NEGATIVE SOURCE (test code = 05644) NOT SPECIFIED CBC W/AUTO [id number] 00:00:00* Test Item Value Reference Range Interpretation [...] (test code = 1015) 229 K/UL PSA, [id number] 00:00:00* Test Item Value Reference Range Interpretation Comme nts PSA, TOTAL (test code = 2606) 0.75 NG/ML [id number] 00:00:00* Test Item Value Reference Range Interpretation Comme nts TESTOSTERONE (test code = 2830) 310 NG/DL CBC W/AUTO [id number] 00:00:00* Test Item Value Reference Range Interpretation [...] (test code = 1015) 229 K/UL PSA, [id number] 00:00:00* Test Item Value Reference Range Interpretation Comme nts PSA, TOTAL (test code = 2606) 0.75 NG/ML [id number] 00:00:00* Test Item Value Reference Range Interpretation Comme nts TESTOSTERONE (test code = 2830) 310 NG/DL COMPREHENSIVE METABOLIC [id number] 00:00:00* Test Item Value Reference Range Interpretation Comme nts GLUCOSE (test code = 2217) 143 MG/DL BUN (test code = 2208) 13 MG/DL CREATININE (test code = 2214) 0.90 MG/DL eGFR AMER. (test cod e = 31236) 117 ML/MIN/1.73 eGFR NON- AMER. (test code = 14929) 101 ML/MIN/1.73 CALC BUN/CREAT (test code = [...] (test code = 2219) 27 U/L LIPID [id number] 00:00:00* Test Item Value Reference Range Interpretation Comme nts CHOLESTEROL (test code = 2210) 117 MG/DL TRIGLYCERIDES (test code = 2232) 114 MG/DL HDL CHOLESTEROL (test code = 2220) 30 MG/DL CALC LDL CHOL (test code = 2237) 64 MG/DL RISK RATIO LDL/HDL (test cod e = 223) 2.14 RATIO HEMOGLOBIN [id number] 00:00:00* Test Item Value Reference Range Interpretation Comme nts HEMOGLOBIN A1c (test code = 56028) 6.5 % MICROALBUMIN/CREATININE, RANDOM AND [id number] 00:00:00* Test Item Value Reference Range Interpretation Comme nts CREATININE, URINE, CONC. (te st code = 2072) 113.3 MG/DL ALBUMIN, URINE, RANDOM (test code = 83432) 1.5 MG/DL CALC ALBUMIN/CREAT, RND (paula t code = 36932) 13 MG/G TESTOSTERONE, FREE/TOTAL WITH [id number] 00:00:00* Test Item Value Reference Range Interpretation Comme nts TESTOSTERONE (test code = 2830) 256 NG/DL SEX HORM BIND GLOBULIN (test code = 4933) 24.6 NMOL/L CALC FREE TESTOSTERONE (test code = 09534) 58.3 PG/ML COMPREHENSIVE METABOLIC [id number] 00:00:00* Test Item Value Reference Range Interpretation Comme nts GLUCOSE (test code = 2217) 143 MG/DL BUN (test code = 2208) 13 MG/DL CREATININE (test code = 2214) 0.90 MG/DL eGFR AMER. (test cod e = 35967) 117 ML/MIN/1.73 eGFR NON- AMER. (test code = 11327) 101 ML/MIN/1.73 CALC BUN/CREAT (test code = 2235) 14 RATIO SODIUM (test code = 2231) 141 MEQ/L POTASSIUM (test code = 2228) 4.6 MEQ/L CHLORIDE (test code = 2215) 103 MEQ/L CARBON DIOXIDE (test code = 2206) 27 MEQ/L CALCIUM (test code = 2209) 9.4 MG/DL PROTEIN, TOTAL (test code = 222) 7.4 G/DL ALBUMIN (test code = 2201) 4.7 G/DL CALC GLOBULIN (test code = 2240) 2.7 G/DL CALC A/G RATIO (test code = 2234) 1.7 RATIO BILIRUBIN, TOTAL (test code = 7) 0.5 MG/DL ALKALINE PHOSPHATASE (test code = 2204) 84 U/L AST (test code = 2218) 18 U/L ALT (test code = 2219) 27 U/L LIPID [id number] 00:00:00* Test Item Value Reference Range Interpretation Comme nts CHOLESTEROL (test code = 0) 117 MG/DL TRIGLYCERIDES (test code = 2232) 114 MG/DL HDL CHOLESTEROL (test code = 2219) 30 MG/DL CALC LDL CHOL (test code = 2236) 64 MG/DL RISK RATIO LDL/HDL (test cod e = 2237) 2.14 RATIO HEMOGLOBIN [id number] 00:00:00* Test Item Value Reference Range Interpretation Comme nts HEMOGLOBIN A1c (test code = 21463) 6.5 % MICROALBUMIN/CREATININE, RANDOM AND [id number] 00:00:00* Test Item Value Reference Range Interpretation Comme nts CREATININE, URINE, CONC. (te st code = 2072) 113.3 MG/DL ALBUMIN, URINE, RANDOM (test code = 39127) 1.5 MG/DL CALC ALBUMIN/CREAT, RND (paula t code = 62274) 13 MG/G TESTOSTERONE, FREE/TOTAL WITH [id number] 00:00:00* Test Item Value Reference Range Interpretation Comme nts TESTOSTERONE (test code = 2830) 256 NG/DL SEX HORM BIND GLOBULIN (test code = 4933) 24.6 NMOL/L CALC FREE TESTOSTERONE (test code = 20612) 58.3 PG/ML COMPREHENSIVE METABOLIC [id number] 00:00:00* Test Item Value Reference Range Interpretation Comme nts GLUCOSE (test code = 7) 267 MG/DL BUN (test code = 8) 18 MG/DL CREATININE (test code = 2214) 0.94 MG/DL eGFR AMER. (test cod e = 95561) 111 ML/MIN/1.73 eGFR NON- AMER. (test code = 45564) 96 ML/MIN/1.73 CALC BUN/CREAT (test code = [...] (test code = 2219) 32 U/L LIPID [id number] 00:00:00* Test Item Value Reference Range Interpretation Comme nts CHOLESTEROL (test code = 2210) 186 MG/DL TRIGLYCERIDES (test code = 2232) 478 MG/DL HDL CHOLESTEROL (test code = 2220) 31 MG/DL CALC LDL CHOL (test code = 2237) NOTE MG/DL RISK RATIO LDL/HDL (test cod e = 2238) (NOTE) RATIO CBC W/AUTO [id number] 00:00:00* Test Item Value Reference Range Interpretation [...] (test code = 1015) 229 K/UL HEMOGLOBIN [id number] 00:00:00* Test Item Value Reference Range Interpretation Comme nts HEMOGLOBIN A1c (test code = 20346) 10.7 % COMPREHENSIVE METABOLIC [id number] 00:00:00* Test Item Value Reference Range Interpretation Comme nts GLUCOSE (test code = 2217) 267 MG/DL BUN (test code = 2208) 18 MG/DL CREATININE (test code = 2214) 0.94 MG/DL eGFR AMER. (test cod e = 60384) 111 ML/MIN/1.73 eGFR NON- AMER. (test code = 43840) 96 ML/MIN/1.73 CALC BUN/CREAT (test code = [...] (test code = 2219) 32 U/L LIPID [id number] 00:00:00* Test Item Value Reference Range Interpretation Comme nts CHOLESTEROL (test code = 2210) 186 MG/DL TRIGLYCERIDES (test code = 2232) 478 MG/DL HDL CHOLESTEROL (test code = 2220) 31 MG/DL CALC LDL CHOL (test code = 2237) NOTE MG/DL RISK RATIO LDL/HDL (test cod e = 2238) (NOTE) RATIO CBC W/AUTO [id number] 00:00:00* Test Item Value Reference Range Interpretation [...] (test code = 1015) 229 K/UL HEMOGLOBIN [id number] 00:00:00* Test Item Value Reference Range Interpretation Comme nts HEMOGLOBIN A1c (test code = 10787) 10.7 % LIPID [id number] 00:00:00* Test Item Value Reference Range Interpretation Comme nts CHOLESTEROL (test code = 2210) 150 MG/DL TRIGLYCERIDES (test code = 2232) 140 MG/DL HDL CHOLESTEROL (test code = 2220) 32 MG/DL CALC LDL CHOL (test code = 2237) 90 MG/DL RISK RATIO LDL/HDL (test cod e = 2238) 2.81 RATIO COMPREHENSIVE METABOLIC [id number] 00:00:00* Test Item Value Reference Range Interpretation Comme nts GLUCOSE (test code = 2217) 138 MG/DL BUN (test code = 2208) 18 MG/DL CREATININE (test code = 2214) 0.81 MG/DL eGFR AMER. (test cod e = 50355) 124 ML/MIN/1.73 eGFR NON- AMER. (test code = 08303) 107 ML/MIN/1.73 CALC BUN/CREAT (test code = [...] (test code = 2219) 20 U/L HEMOGLOBIN [id number] 00:00:00* Test Item Value Reference Range Interpretation Comme nts HEMOGLOBIN A1c (test code = 67633) 7.3 % [id number] 00:00:00* Test Item Value Reference Range Interpretation Comme nts TESTOSTERONE (test code = 2830) 333 NG/DL LIPID [id number] 00:00:00* Test Item Value Reference Range Interpretation Comme nts CHOLESTEROL (test code = 2210) 150 MG/DL TRIGLYCERIDES (test code = 2232) 140 MG/DL HDL CHOLESTEROL (test code = 2220) 32 MG/DL CALC LDL CHOL (test code = 2237) 90 MG/DL RISK RATIO LDL/HDL (test cod e = 2238) 2.81 RATIO COMPREHENSIVE METABOLIC [id number] 00:00:00* Test Item Value Reference Range Interpretation Comme nts GLUCOSE (test code = 2217) 138 MG/DL BUN (test code = 2208) 18 MG/DL CREATININE (test code = 2214) 0.81 MG/DL eGFR AMER. (test cod e = 17803) 124 ML/MIN/1.73 eGFR NON- AMER. (test code = 47186) 107 ML/MIN/1.73 CALC BUN/CREAT (test code = [...] (test code = 2219) 20 U/L HEMOGLOBIN [id number] 00:00:00* Test Item Value Reference Range Interpretation Comme nts HEMOGLOBIN A1c (test code = 30692) 7.3 % [id number] 00:00:00* Test Item Value Reference Range Interpretation Comme nts TESTOSTERONE (test code = 2830) 333 NG/DL COMPREHENSIVE METABOLIC [id number] 00:00:00* Test Item Value Reference Range Interpretation Comme nts GLUCOSE (test code = 2217) 363 MG/DL BUN (test code = 2208) 16 MG/DL CREATININE (test code = 2214) 0.81 MG/DL eGFR AMER. (test cod e = 61888) 124 ML/MIN/1.73 eGFR NON- AMER. (test code = 79440) 107 ML/MIN/1.73 CALC BUN/CREAT (test code = [...] (test code = 2219) 22 U/L LIPID [id number] 00:00:00* Test Item Value Reference Range Interpretation Comme nts CHOLESTEROL (test code = 2210) 188 MG/DL TRIGLYCERIDES (test code = 2232) 421 MG/DL HDL CHOLESTEROL (test code = 2220) 30 MG/DL CALC LDL CHOL (test code = 2237) NOTE MG/DL RISK RATIO LDL/HDL (test cod e = 2238) (NOTE) RATIO HEMOGLOBIN [id number] 00:00:00* Test Item Value Reference Range Interpretation Comme nts HEMOGLOBIN A1c (test code = 48056) 11.0 % COMPREHENSIVE METABOLIC [id number] 00:00:00* Test Item Value Reference Range Interpretation Comme nts GLUCOSE (test code = 2217) 363 MG/DL BUN (test code = 2208) 16 MG/DL CREATININE (test code = 2214) 0.81 MG/DL eGFR AMER. (test cod e = 30123) 124 ML/MIN/1.73 eGFR NON- AMER. (test code = 70413) 107 ML/MIN/1.73 CALC BUN/CREAT (test code = [...] (test code = 2219) 22 U/L LIPID [id number] 00:00:00* Test Item Value Reference Range Interpretation Comme nts CHOLESTEROL (test code = 2210) 188 MG/DL TRIGLYCERIDES (test code = 2232) 421 MG/DL HDL CHOLESTEROL (test code = 2220) 30 MG/DL CALC LDL CHOL (test code = 2237) NOTE MG/DL RISK RATIO LDL/HDL (test cod e = 2238) (NOTE) RATIO HEMOGLOBIN [id number] 00:00:00* Test Item Value Reference Range Interpretation Comme nts HEMOGLOBIN A1c (test code = 01658) 11.0 %
[2024-08-02] MEDS ORDERED: NA CHLORIDE 0.9% 1,000 ML ONE (04:39)
[2024-08-02 05:05] LABS: Absolute Lymphocytes (CBC) 1.3 K/uL (0.7-4.9); Absolute Monocytes 0.9 K/uL (0.1-1.3); Absolute Neutrophil 6.3 K/uL (1.8-8.0); Basophils % 0.4 % (0-1.3); Eosinophils % 0.1 % (0-4.4); Hematocrit 40.1 % (39.6-49.0); Hemoglobin 13.9 g/dL (13.6-17.9); Lymphocytes % 15.5 % (15.3-44.8); MCH 31.2 pg (27.0-35.0); MCHC 34.7 g/dL (32.0-36.0); MCV 89.8 fL (80-100); MPV 8.1 fL (7.6-11.3); Monocytes % 10.6 % (3.3-12.3); Neutrophils % 73.4 % (41.7-73.7); Platelets 209 thou/uL (152-406); RBC Red Blood Cell Count 4.47 M/uL (4.33-5.43); Red Cell Distribution Width 13.2 % (12.1-15.2)
[2024-08-02 05:23] LABS: ALT/SGPT 16 U/L (16-61); Albumin 3.5 g/dL (3.4-5.0); Albumin/Globulin Ratio 0.9 (1.1-1.8); Alkaline Phosphatase 63 U/L (45-117); BUN Blood Urea Nitrogen 15 mg/dL (7-18); Bicarbonate 22 mEq/L (21-32); Bilirubin Total 0.9 mg/dL (0.2-1.0); Globulin 3.9 g/dL (2.3-3.5); Glomerular Filtration Rate 94 ml/min (=/>90); Glucose Level 101 mg/dL (74-106); Protein, Total 7.4 g/dL (6.4-8.2); Sodium Level 137 mEq/L (136-145)
[2024-08-02 05:25] LABS: AST/SGOT < 10 U/L (15-37)
[2024-08-02 05:27] LABS: SARS-CoV-2 Antigen CONTROL BLUE LINE VIS/BG OK; SARS-CoV-2 Antigen Rapid Res Negative (Negative)
--- NOTE | 2024-08-02 05:37 | EDPHYS ---
Physician Documentation [facility] Name: Marciano Causey Age: 53 yrs Sex: Male : 1970 Arrival Date: 08/02/2024 Time: 04:12 Bed 4 Private MD: ED Physician Ashvin Chin HPI: 08/02 04:45 This 53 yrs old Male presents to ER via EMS with complaints of Body aches and weakness. sp3 04:45 53-year-old male with history of diabetes and hypertension presents with generalized sp3 weakness and body aches and chills with feelings of "dehydration". Patient denies fever, lymphadenopathy, chest pain, shortness of breath, abdominal pain, vomiting, diarrhea, rash, known sick contacts, travel history, prolonged immobilization, or any other signs or symptoms on ROS at this time.. Historical: - Allergies: 04:35 No Known Allergies; kj2 - PMHx: 04:35 diabetes mellitus; Hypertensive disorder; kj2 - Immunization history:: Adult Immunizations unknown. - Infectious Disease History:: Denies. - Social history:: Smoking status: Patient denies any tobacco usage or history of. ROS: 04:49 Eyes: Negative for injury, pain, redness, and discharge, Neck: Negative for injury, sp3 pain, and swelling, Cardiovascular: Negative for chest pain, palpitations, and edema, Abdomen/GI: Negative for abdominal pain, nausea, vomiting, diarrhea, and constipation, Back: Negative for injury and pain, MS/Extremity: Negative for injury and deformity, Skin: Negative for injury, rash, and discoloration, Neuro: Negative for headache, weakness, numbness, tingling, and seizure, Psych: Negative for depression, anxiety, suicide ideation, homicidal ideation, and hallucinations, Allergy/Immunology: Negative for hives, rash, and allergies, Endocrine: Negative for neck swelling, polydipsia, polyuria, polyphagia, and marked weight changes, Hematologic/Lymphatic: Negative for swollen nodes, abnormal bleeding, and unusual bruising, 04:49 All other systems are negative, Exam: 04:49 Constitutional: This is a well developed, well nourished patient who is awake, alert, sp3 and in no acute distress. Head/Face: Normocephalic, atraumatic. Eyes: Pupils equal round and reactive to light, extra-ocular motions intact. Lids and lashes normal. Conjunctiva and sclera are non-icteric and not injected. Cornea within normal limits. Periorbital areas with no swelling, redness, or edema. ENT: Nares patent. No nasal discharge, no septal abnormalities noted. External auditory canals are clear. Oropharynx with no redness, swelling, or masses, exudates, or evidence of obstruction, uvula midline. Mucous membranes moist. Neck: Trachea midline, no thyromegaly or masses palpated, and no cervical lymphadenopathy. Supple, full range of motion without nuchal rigidity, or vertebral point tenderness. No Meningismus. Chest/axilla: Normal chest wall appearance and motion. Nontender with no deformity. No lesions are appreciated. Cardiovascular: Regular rate and rhythm with a normal S1 and S2. No gallops, murmurs, or rubs. Normal PMI, no JVD. No pulse deficits. Respiratory: Lungs have equal breath sounds bilaterally, clear to auscultation and percussion. No rales, rhonchi or wheezes noted. No increased work of breathing, no retractions or nasal flaring. Abdomen/GI: Soft, non-tender, with normal bowel sounds. No distension or tympany. No guarding or rebound. No evidence of tenderness throughout. Back: No spinal tenderness. No costovertebral tenderness. Full range of motion. Skin: Warm, dry with normal turgor. Normal color with no rashes, no lesions, and no evidence of cellulitis. MS/ Extremity: Pulses equal, no cyanosis. Neurovascular intact. Full, normal range of motion. Neuro: Awake and alert, GCS 15, oriented to person, place, time, and situation. Cranial nerves II-XII grossly intact. Motor strength 5/5 in all extremities. Sensory grossly intact. Cerebellar exam normal. Normal gait. Psych: Awake, alert, with orientation to person, place and time. Behavior, mood, and affect are within normal limits. Vital Signs: 04:15 BP 150 / 81; Pulse 93; Resp 18; Temp 97.5; Pulse Ox 100% on R/A; Weight 86.18 kg; kj2 Height 5 ft. 3 in. ; Pain 0/10; 05:00 BP 151 / 78 Supine; Pulse 90; Resp 18; Pulse Ox 100% on R/A; kj2 05:03 BP 156 / 82 Sitting; Pulse 100; Resp 20; Pulse Ox 100% on R/A; kj2 05:08 BP 155 / 76; Pulse 90; Resp 18; Pulse Ox 98% on R/A; kj2 05:24 BP 152 / 75; Pulse 97; Resp 18; Pulse Ox 100% ; kj2 04:15 Body Mass Index 33.66 (86.18 kg, 160.02 cm) kj2 04:15 Pain Scale: Adult kj2 MDM: 04:15 Patient medically screened. 3 04:49 Data reviewed: vital signs, nurses notes, lab test result(s). ED course: 53-year-old sp3 male with PMH above now with bodyaches, feelings of dehydration and very mild cough. Differential diagnosis includes viral syndrome, dehydration, COVID-19, influenza, among others. Clinically I am at high suspicious of sepsis, shock, ACS, PE, pneumonia, vascular pathology, or any other critical process. Workup will include laboratory values, swabs and general supportive care with IV fluids. If workup negative we will safely discharge patient home.. 05:35 ED course: Labs normal and swabs negative. We will safely discharge patient home at [facility] this time.. 08/02 04:36 Order name: CBC with Diff; Complete Time: 05:18 3 08/02 04:36 Order name: CMP; Complete Time: 05:35 sp3 08/02 04:36 Order name: Flu; Complete Time: 05:35 sp3 08/02 04:36 Order name: SARS RAPID; Complete Time: 05:35 3 08/02 04:36 Order name: IV Saline Lock; Complete Time: 04:56 sp3 08/02 04:36 Order name: Labs collected and sent; Complete Time: 04:55 sp3 08/02 04:36 Order name: Orthostatics; Complete Time: 05:58 3 Administered Medications: 04:57 Drug: NS 0.9% IV 1000 ml IV at 1 bolus Per protocol; 1000 mL bolus Route: IV; Rate: 1 kj2 bolus; Site: right antecubital; 05:58 Follow up: IV Status: Completed infusion; IV Intake: 1000ml kj2 Disposition Summary: 08/02/24 05:36 Discharge Ordered Notes: Location: Home [facility] Condition: Stable 3 Diagnosis - Viral illness, dehydration, near syncope sp3 Followup: sp3 - With: Private Physician - When: Upon discharge from the Emergency Department - Reason: Continuance of care Discharge Instructions: - Discharge Summary Sheet sp3 - Viral Illness, Adult sp3 Forms: - Medication Reconciliation Form sp3 - Antibiotic Education sp3 - Prescription Opioid Use sp3 - Patient Portal Instructions sp3 - Leadership Thank You Letter sp3 Signatures: Dispatcher [employer] EDMS Ashvin Chin MD MD sp3 Elsa Caballero RN RN kj2 Corrections: (The following items were deleted from the chart) 04:36 04:36 CBC+H.LAB.BRZ ordered. EDMS EDMS 04:36 04:36 COMPREHENSIVE METABOLIC PANEL+C.LAB.BRZ ordered. EDMS EDMS 04:36 04:36 Influenza Screen (A \\T\\ B)+BA.LAB.BRZ ordered. EDMS EDMS 04:36 04:36 SARS-COV-2 Antigen Rapid+I.LAB.BRZ ordered. EDMS EDMS
--- NOTE | 2024-08-02 05:37 | ER ---
Nurse's Notes [facility] Name: Marciano Causey Age: 53 yrs Sex: Male : 1970 Arrival Date: 08/02/2024 Time: 04:12 Bed 4 Private MD: Diagnosis: Viral illness, dehydration, near syncope Presentation: 08/02 04:15 Chief complaint: EMS states: not sleeping well, collapsed when going to the bathroom, kj2 no LOC, skin was clammy upon arrival. Coronavirus screen: At this time, the client does not indicate any symptoms associated with coronavirus-19. Ebola Screen: No symptoms or risks identified at this time. Initial Sepsis Screen: Does the patient meet any 2 criteria? No. Patient's initial sepsis screen is negative. Does the patient have a suspected source of infection? No. Patient's initial sepsis screen is negative. Risk Assessment: Do you want to hurt yourself or someone else? Patient reports no desire to harm self or others. Onset of symptoms was August 02, 2024. 04:15 Method Of Arrival: EMS: [facility] kj2 04:15 Acuity: JAMIL 3 kj2 Triage Assessment: 04:36 General: Appears in no apparent distress. Behavior is calm, cooperative. Pain: Denies kj2 pain. Historical: - Allergies: 04:35 No Known Allergies; kj2 - PMHx: 04:35 diabetes mellitus; Hypertensive disorder; kj2 - Immunization history:: Adult Immunizations unknown. - Infectious Disease History:: Denies. - Social history:: Smoking status: Patient denies any tobacco usage or history of. Screenin:[facility] ED Fall Risk Assessment (Adult) History of falling in the last 3 months, kj2 including since admission Yes- single mechanical fall (1 pt) Confusion or Disorientation No (0 pts) Intoxicated or Sedated No (0 pts) Impaired Gait No (0 pts) Mobility Assist Device Used No (0 pt) Altered Elimination No (0 pt) Score/Fall Risk Level 3 or more points = High Risk Maintained a safe environment, Educated pt \T\ family on fall prevention, incl call for assistance when getting out of bed, Hourly rounding (assess needs \T\ fall precautionary measures) done, Utilized family, sitter, or virtual log skidder as indicated. Abuse screen: Denies threats or abuse. Denies injuries from another. Nutritional screening: No deficits noted. Tuberculosis screening: No symptoms or risk factors identified. Assessment: 04:38 General: see triage assessment. kj2 05:25 Reassessment: Patient appears in no apparent distress at this time. Patient and/or kj2 family updated on plan of care and expected duration. Pain level reassessed. Patient is alert, oriented x 3, equal unlabored respirations, skin warm/dry/pink. Vital Signs: 04:15 BP 150 / 81; Pulse 93; Resp 18; Temp 97.5; Pulse Ox 100% on R/A; Weight 86.18 kg; kj2 Height 5 ft. 3 in. ; Pain 0/10; 05:00 BP 151 / 78 Supine; Pulse 90; Resp 18; Pulse Ox 100% on R/A; kj2 05:03 BP 156 / 82 Sitting; Pulse 100; Resp 20; Pulse Ox 100% on R/A; kj2 05:08 BP 155 / 76; Pulse 90; Resp 18; Pulse Ox 98% on R/A; kj2 05:24 BP 152 / 75; Pulse 97; Resp 18; Pulse Ox 100% ; kj2 04:15 Body Mass Index 33.66 (86.18 kg, 160.02 cm) kj2 04:15 Pain Scale: Adult kj2 ED Course: 04:15 Patient arrived in ED. lg3 04:15 Ashvin Chin MD is Attending Physician. sp3 04:17 Elsa Caballero, DELLA is Primary Nurse. kj2 04:20 Arm band placed on Patient placed. kj2 04:34 Triage completed. kj2 04:38 Maintain EMS IV. Dressing intact. Site clean \T\ dry. Gauge \T\ site: 20 gauge right AC. kj 2 Flushed with 10 mL NS. 04:55 SARS RAPID Sent. kj2 04:55 Flu Sent. kj2 04:55 CBC with Diff Sent. kj2 04:56 CMP Sent. kj2 04:56 EKG completed in triage. Results shown to . kj2 04:59 No provider procedures requiring assistance completed. kj2 04:59 Provided Education on: call light, fall prevention. kj2 05:01 Patient has correct armband on for positive identification. Call light in reach. Side kj2 rails up X 1. Adult w/ patient. 05:38 IV discontinued, intact, bleeding controlled, No redness/swelling at site. Pressure kj2 dressing applied. Administered Medications: 04:57 Drug: NS 0.9% IV 1000 ml IV at 1 bolus Per protocol; 1000 mL bolus Route: IV; Rate: 1 kj2 bolus; Site: right antecubital; 05:58 Follow up: IV Status: Completed infusion; IV Intake: 1000ml kj2 Medication: 05:00 VIS not applicable for this client. kj2 Intake: 05:58 IV: 1000ml; Total: 1000ml. kj2 Outcome: 05:36 Discharge ordered by MD. barclay 05:38 Discharged to home ambulatory, kj2 05:38 Condition: stable 05:38 Discharge instructions given to patient, family, Instructed on discharge instructions, follow up and referral plans. Demonstrated understanding of instructions, follow-up care, 05:58 Patient left the ED. kj2 Signatures: Maribel Max RN RN lg3 Ashvin Chin MD MD sp3 Elsa Caballero RN RN kj2
--- NOTE | 2024-08-02 12:55 | EKG ---
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
== END 2024-08-02 05:58 | disposition home or self-care (01) ==
LOC: ER 04:12
DX: B34.9 Viral infection, unspecified (principal); E86.0 Dehydration; R55 Syncope and collapse; E11.9 Type 2 diabetes mellitus without complications; I10 Essential (primary) hypertension; Z11.52 Encounter for screening for COVID-19
CPT/HCPCS: 36415; 80053; 85025; 87804; 87811; 93005; 96360; 99284; J7030